=== PATIENT | male | born 1955 | race Caucasian/White ===

== ENCOUNTER 2018-09-02 17:54 | Inpatient (IN) ==
[~2018-09-02 17:54] MED LIST: predniSONE 10 MG TABLET PO SCH
[2018-09-02] MEDS ORDERED: IOPAMIDOL 100 ML BOTTLE IV ONE (17:55)
[2018-09-02] MEDS ORDERED: 0.9 % SODIUM CHLORIDE 1,000 ML IV ONE (18:31)
--- NOTE | 2018-09-02 18:50 | Emergency Department Note ---
SOB HPI - General Chief Complaint: Shortness of Breath/Dyspnea Stated Complaint: Shortness of Breath Time Seen by Provider: 09/02/18 18:27 Source: patient Mode of arrival: ambulatory Limitations: no limitations - History of Present Illness This pleasant 63-year-old male comes in after being called by urgent care. He had test done around 230 today that showed a significant anemia and a possibility of a mass in the right lower lobe with an elevated d-dimer of 0.99. His creatinine was 1.3. His hemoglobin was reported as 8.1. He has dizziness /lightheadedness when he stands up. He has had's some chronic loose stools but even more loose in the past 3-4 days. The lightheadedness has been about 3-4 days. He has had some dark stools also for about the same time. As well as shortness of breath with any activity during this time. He denies any aspiration. He has had some sweats and some chills. No cough or wheezing or phlegm. 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 Reportedly there was a small spot on the lung at that time that seem to have been pre-existing and in follow-up did not show any change. REVIEW OF SYSTEMS: Denies chest pain, throat pain, runny nose, nasal congestion. Denies chest pain although refers to sometimes fullness sensation. No palpitations. No cough, wheeze, phlegm production. Some nausea. No hematochezia or melena but dark stools. He does occasionally get some acid reflux and was recently changed from Prevacid to ranitidine with no change in symptoms. No dysuria or frequency. Denies back pain Denies rashes Has occasional headaches. Has not felt significant weakness. Denies anxiety and depression Has felt generally tired fatigue. - Related Data Home Medications Medication Instructions Recorded Confirmed aspirin 325 mg tablet 325 mg PO QDAY tab 05/13/15 09/02/18 mycophenolate mofetil 500 mg tablet 750 mg PO BID tab 05/13/15 09/02/18 prednisone 5 mg tablet 17.5 mg PO .QOTHER tab 01/23/18 09/02/18 Previous Rx's Medication Instructions Recorded lansoprazole 30 mg capsule,delayed 30 mg PO QDAY #90 cap 01/08/18 release pyridostigmine bromide ER 180 mg 180 mg PO QHS #90 tab 03/27/18 tablet,extended release dulaglutide 0.75 mg/0.5 mL 0.75 mg SUB-Q QWEEK #6 ml 04/23/18 subcutaneous pen injector irbesartan 300 mg tablet 300 mg PO QDAY #90 tab 05/07/18 pioglitazone 45 mg tablet 45 mg PO QDAY #90 tab 05/21/18 atorvastatin 20 mg tablet 20 mg PO QDAY #90 tab 06/11/18 metformin ER 500 mg 500 mg PO TID #270 tab 07/09/18 tablet,extended release 24 hr hydrochlorothiazide 25 mg tablet 25 mg PO QDAY #90 tab 07/16/18 ranitidine 150 mg tablet 150 mg PO QHS #90 tab 07/16/18 blood sugar diagnostic strips See Dose Instructions .ROUTE 07/18/18 .MEDSUPPLY #100 each pyridostigmine bromide 60 mg tablet 60 mg PO Q6H #120 tab 07/30/18 Allergies Allergy/AdvReac Type Severity Reaction Status Date / Time No Known Drug Allergies Allergy Verified 09/02/18 14:18 Past Medical History - Past Medical History [facility] Narrative: Medical History (Last Updated 09/02/18 @ 19:07 by Cesar Cortez DO) History of anemia (Chronic ~2007) History of sarcoma of soft tissue (Chronic) KAIDEN (obstructive sleep apnea) (Chronic) Obesity (BMI 30-39.9) (Chronic) Hemorrhoids (Acute) Somnolence (Acute) Myasthenia gravis without acute exacerbation (Chronic) Hypertension, essential, benign (Chronic) Hyperlipidemia (Chronic) Headache (Acute) Esophageal reflux (Acute) Diabetes mellitus, type II (Acute) History of colon cancer (Acute) Sepulveda's esophagus (Acute) Past Surgical History (Last Updated 09/02/18 @ 19:07 by Cesar Cortez DO) History of surgery on arm (Chronic ~2013) Hx of thymectomy (Chronic) Transplanted cornea (Acute) H/O sternectomy (Chronic ~2000) History of hemicolectomy (Chronic ~2007) History of colonoscopy (Inactive 10/21/13) Family History (Last Reviewed 12/17/17 @ 12:31 by Branden Dang PA-C) Unknown Diabetes mellitus Essential hypertension Medical history: Reports: other (hemorrhoids. DENIES Chronic anticoagulants, pneumonia, PUD.). Denies: CHF, COPD, DVT, pulmonary embolus, thyroid disease - Social History smoking status: Never smoker Alcohol use: Reports: None Drug use: Reports: none. Denies: marijuana Physical Exam Limitations: no limitations General appearance: alert, in no apparent distress, obese Head: atraumatic, normocephalic Eye: Present: EOMI ENT: mucous membranes moist Neck: Present: trachea midline. Absent: lymphadenopathy, thyromegaly Chest: Present: symmetric chest wall rise Respiratory: Present: normal lung sounds bilaterally. Absent: respiratory distress, wheezes, stridor, accessory muscle use, prolonged expiratory phase Cardiovascular: Present: regular rate, normal rhythm. Absent: systolic murmur, diastolic murmur Abdominal: Present: soft, other (LargeLarge domed and moderately firm). Absent : distention, tenderness, guarding, rebound, rigidity, organomegaly, mass Rectal: Present: normal rectal tone, heme (+) stool, black stool, hemorrhoids ( Noninflamed but 1 of which is markedly to moderately enlarged but flat and light pink at 12:00.), prostate enlargement (Mildly without nodule). Absent: mass, tenderness, prostate tenderness Extremities: Absent: pedal edema, pretibial edema, calf tenderness Back: Absent: CVA tenderness (R), CVA tenderness (L), spinous process tenderness Neurological: Present: alert, oriented X3 Psychiatric: Present: normal affect, normal mood Skin: Present: warm, dry Course Course Narrative: 6:29 PM - symptomatic anemic patient with Hemoccult positive stool and a right lower lobe lung mass with a history of sarcoma and colon cancer. We will do some hydration and type and cross for [address] scan of the chest with angiogram because of elevated d-dimer and at risk if he has an underlying oncologic condition. Approximately 7:30 PM - radiologist informs me of patient having a 5 cm posterior right lower lobe pleural-based mass that is likely neoplastic. There is also a new lesion in the liver that is 10 cm and is new compared to old CT. No lymph nodes are obvious. Emboli are not noted in the large ones he has a small ASD which decreases some of the sensitivity but no obvious emboli. 7:45 PM - I spoke with patient and informed him of the circumstances above and concerns. Possibility of near future biopsy but first needs infusions of 2 units of packed RBCs and workup for upper GI bleed possibility. 7:55 PM - spoke with hospitalist, Dr. Villeda. I will speak with Dr. Escalona regarding possible EGD and discussed that with him. 8 PM - I spoke with hospitalist, Dr. Villeda. Then I spoke with Dr. Molina, information assurance manager, who kindly accepts adding him to the schedule tomorrow to do an upper scope. He requests Protonix 80 mg bolus and then infusion, 8 mg/h after that. 8:13 PM - Dr. Villeda kindly accepts this patient's inpatient care. Vital Signs Temperature 97.6 F 09/02/18 17:55 Pulse Rate 79 09/02/18 17:55 Respiratory Rate 18 09/02/18 17:55 Blood Pressure 129/67 09/02/18 17:55 Pulse Oximetry (%) 100 09/02/18 17:55 Temperature 97.6 F 09/02/18 17:55 Pulse Rate 62 09/02/18 19:43 Respiratory Rate 19 09/02/18 19:43 Blood Pressure 132/56 09/02/18 19:16 Pulse Oximetry (%) 100 09/02/18 19:43 Shortness of Breath/Dyspnea - Lab Data Lab results reviewed: Yes I reviewed the patient's lab results. Lab Results 09/02/18 Range/Units 19:11 POC Hct 24.0 L (41.0-55.0) % POC Sodium 140 (133-145) mmol/L POC Potassium 3.8 (3.3-5.1) mmol/L POC Chloride 106 (96-108) mmol/L POC Total CO2 23 (22-30) mmol/L POC BUN 20 (8-23) mg/dl POC Creatinine 1.5 H (0.7-1.2) mg/dl POC Glucose 102 (70-105) mg/dL POC WB Ioniz Calcium 1.15 L (1.16-1.32) mmol/L - Radiology Data Radiology results reviewed: Yes I reviewed the patient's radiology results. - EKG Data EKG results narrative: No acute coronary syndrome findings. Sinus rhythm with frequent PACs. This ECG will be read by a setup technician. Disposition Pt seen by [facility]AGMAN/PA only: No Clinical Impression: Anemia due to gastrointestinal blood loss, Right lower lobe lung mass, Liver mass, ASD (atrial septal defect), KAIDEN (obstructive sleep apnea) Summary: SEE COURSE ABOVE. PATIENT BEING ADMITTED FOR FURTHER TRANSFUSIONS OF PACKED RED BLOOD CELLS, IV PPI, EGD IN THE MORNING, AND POSSIBLE BIOPSY OF MASSES IN THE RIGHT LOWER LOBE OF THE LUNG AND/OR LIVER. Disposition: Xfer As Inpt ([facility]) Condition: Serious Referrals: Natan Trejo MD [Primary Care Provider] -
[2018-09-02] MEDS ORDERED: 0.9 % SODIUM CHLORIDE 250 ML IV SCH ×3 (20:00→21:23)
[2018-09-02] MEDS ORDERED: PANTOPRAZOLE 40 MG VIAL IV ONE ×2 (20:15→21:39)
[2018-09-02 20:20] LABS: Appearance,Urine CLEAR; Bacteria,Urine 0 /hpf (0); Bilirubin,Urine NEG (NEG); Color,Urine YELLOW; Glucose,Urine (UA) NEGATIVE (NEG); Leukocyte Esterase,Urine NEG /uL (NEG); Mucus,Urine FEW /hpf (0); Protein,Urine NEG (NEG); Specific Gravity,Urine 1.021 (1.000-1.035); Urine Blood NEG mg/dL (<0.03); Urine Hyaline Cast 13 /lpf (0-2); Urine RBC < 1 /hpf (0-1); Urine Squamous Epithelial Cell 0 /hpf (0-4); Urine WBC 3 /hpf (0-4); Urobilinogen,Urine NEG (NEG)
[2018-09-02] MEDS ORDERED: ACETAMINOPHEN 325 MG TABLET PO PRN (21:23)
[2018-09-02] MEDS ORDERED: IPRATROPIUM/ALBUTEROL 3 ML AMPUL.NEB NEB PRN (21:23)
[2018-09-02] MEDS ORDERED: NALOXONE HCL 0.4 MG/ML VIAL IV PRN (21:23)
[2018-09-02] MEDS: PANTOPRAZOLE 80 MG in 0.9 % SODIUM CHLORIDE 100 ML IV SCH (21:52)
[2018-09-02] MEDS: HYDROcodone/APAP 5/325MG TABLET PO PRN (21:56)
[2018-09-02] MEDS: 0.9 % SODIUM CHLORIDE 10 ML SYRINGE IV SCH (22:00)
--- NOTE | 2018-09-02 22:08 | Internal Med History&Physical ---
Medical - H&P: HPI Patient information: Note initiated : 09/02/18 at 10:06 pm Service Date, if different from initiated Date: [] Patient: David Lynch a 63 y/o M admitted on 09/02/18 for Shortness of Breath. Chief Complaint: [] History of present illness: Mr. 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 Mayo oncologist. The patient presents to the ER from the urgent care center for shortness of breath and dizziness that has been bothering him for the last 2 -3 weeks. This has been progressively getting worse. Over the last 3-4 days the patient notes that his effort tolerance is significantly declined, he gets dizzy when he tries to climb up stairs or sometimes when he changes position. The patient has had poor appetite early satiety and some bloating in his stomach. The patient notes that he feels pressure on the abdominal epigastric region constant not associated with activity. The patient denies any headache changes in vision difficulty in swallowing [has a history of myasthenia but no recent flareup], denies any chest pain palpitations. He does have some abdominal distention, epigastric distress intermittent, bloating, he admits to having some dark stools denies any blood in the stools denies black colored stools. Denies any urinary issues. Has chronic knee issues, no new joint swelling no new skin rashes. He denies any other acute complaints or concerns. In the emergency room the patient was noted to be afebrile, hemodynamically stable, saturating 100% on room air. Chest x-ray that was done in the urgent care setting showed that the patient had a mass in the lung. Labs drawn showed a hemoglobin of around 8.1, before this was 10.9 in dec this year. D-dimer elevated at 0.9, chemistry shows creatinine of 1.3, BUN 20. Rest of the left lites stable. CT angios shows mass in the lung, mass in the liver. Given the hemoglobin was 8.1 FOB was checked which was noted to be positive and GI was consulted given the patient had some dizziness patient was admitted to the hospital for anemia as well as positive occult blood testing. IV PPI initiated at the request of GI physician. All systems: reviewed and no additional remarkable complaints except as stated ( As per HPI rest negative) Medical - H&P: PMH Medical history: Medical History (Last Updated 09/02/18 @ 19:07 by Cesar Cortez DO) History of anemia (Chronic ~2007) History of sarcoma of soft tissue (Chronic) KAIDEN (obstructive sleep apnea) (Chronic) Obesity (BMI 30-39.9) (Chronic) Hemorrhoids (Acute) Somnolence (Acute) Myasthenia gravis without acute exacerbation (Chronic) Hypertension, essential, benign (Chronic) Hyperlipidemia (Chronic) Headache (Acute) Esophageal reflux (Acute) Diabetes mellitus, type II (Acute) History of colon cancer (Acute) Sepulveda's esophagus (Acute) Surgical history: Past Surgical History (Last Updated 09/02/18 @ 19:07 by Cesar Cortez DO) History of surgery on arm (Chronic ~2013) Hx of thymectomy (Chronic) Transplanted cornea (Acute) H/O sternectomy (Chronic ~2000) History of hemicolectomy (Chronic ~2007) for colon cancer History of colonoscopy (Inactive 10/21/13) Pertinent family history: Family History (Last Reviewed 12/17/17 @ 12:31 by Branden Dang PA-C) Unknown Diabetes mellitus Essential hypertension Medical - H&P: Meds Home Medications Medication Instructions Recorded Confirmed Type aspirin 325 mg tablet 325 mg PO QDAY tab 05/13/15 09/02/18 History mycophenolate mofetil 500 mg tablet 750 mg PO BID tab 05/13/15 09/02/18 History lansoprazole 30 mg capsule,delayed 30 mg PO QDAY #90 cap 01/08/18 09/02/18 Rx release prednisone 5 mg tablet 17.5 mg PO .QOTHER tab 01/23/18 09/02/18 History pyridostigmine bromide ER 180 mg 180 mg PO QHS #90 tab 03/27/18 09/02/18 Rx tablet,extended release dulaglutide 0.75 mg/0.5 mL 0.75 mg SUB-Q QWEEK #6 ml 04/23/18 09/02/18 Rx subcutaneous pen injector irbesartan 300 mg tablet 300 mg PO QDAY #90 tab 05/07/18 09/02/18 Rx pioglitazone 45 mg tablet 45 mg PO QDAY #90 tab 05/21/18 09/02/18 Rx atorvastatin 20 mg tablet 20 mg PO QDAY #90 tab 06/11/18 09/02/18 Rx metformin ER 500 mg 500 mg PO TID #270 tab 07/09/18 09/02/18 Rx tablet,extended release 24 hr hydrochlorothiazide 25 mg tablet 25 mg PO QDAY #90 tab 07/16/18 09/02/18 Rx ranitidine 150 mg tablet 150 mg PO QHS #90 tab 07/16/18 09/02/18 Rx blood sugar diagnostic strips See Dose Instructions .ROUTE 07/18/18 09/02/18 Rx .MEDSUPPLY #100 each pyridostigmine bromide 60 mg tablet 60 mg PO Q6H #120 tab 07/30/18 09/02/18 Rx Allergies Allergy/AdvReac Type Severity Reaction Status Date / Time No Known Drug Allergies Allergy Verified 09/02/18 14:18 Medical - H&P: Exam - Constitutional Vitals: Temp Pulse Resp BP Pulse Ox 97.6 F 79 15 121/62 99 09/02/18 21:25 09/02/18 21:25 09/02/18 21:25 09/02/18 21:25 09/02/18 21:25 Exam: GENERAL: The patient is a well-developed, well-nourished in no apparent distress. Is alert and oriented x3. Obese individual VITAL SIGNS: Reviewed and as noted elsewhere. HEENT: Head is normocephalic and atraumatic. Extraocular muscles are intact. Pupils are equal, round, and reactive to light. Nares appeared normal. Mouth appears any without lesions. Mucous membranes are moist. NECK: Normal to inspection, Supple, No lymphadenopathy or thyromegaly. LUNGS: Air entry equal on both sides, no wheezing, crackles or rhonchi noted. No accessory muscles of respiration HEART: Regular rate and rhythm normal, S1 and S2 heard, no Gallop, S3 or Rub Noted, No Gross murmur heard. ABDOMEN: Soft, nontender,. Positive bowel sounds. No hepatosplenomegaly was noted. Large pannus distended abdomen patient notes is chronically distended EXTREMITIES: No cyanosis, clubbing, rash, lesions or edema. NEUROLOGIC: Cranial nerves II through XII are grossly intact. Motor and Sensory System Grossly Intact PSYCHIATRIC: Normal affect, Normal Mood. Appropriate Behavior. SKIN: No ulceration or wounds noted, No jaundice, No rash noted. Few bruising noted on arms Medical - H&P: Reslt - Labs Labs: Urine 09/02/18 Range/Units 19:47 Urine Color Yellow Urine Appearance Clear Urine pH 5.0 (5.0-9.0) Ur Specific [place] 1.021 (1.000-1.035) Urine Protein Neg (NEG) mg/dL Urine Glucose (UA) Negative (NEG) mg/dL Medical - H&P: A/P - Narrative A/P Narrative: A/P GI bleed, likely lower Lung mass Liver mass h/o colon cancer h/o sarcoma on upper extremity obesity HTN HLD Myasthenia Gravis Diabetes mellitus Plan Admit to inpatient status, Transfuse 2 units of blood Likely lower GI bleed given that BUN is near normal. GI has been consulted, who will be doing EGD in AM, IV PPI on going. May need a colonoscopy, last colonoscopy as per pt 2013 Will need to consider biopsy of liver or lung lesion. If c reatinine is stable in AM will get CT abdomen and pelvis. Resume home meds as appropriate Resume pyridostigmine for myasthenia gravis resume steroids. DVT scd GI ppi Full code NPO diet. Social History - Tobacco smoking status: Never smoker - Alcohol alcohol intake frequency: does not drink - Substance use substance use type: does not use
[2018-09-02 22:10] LABS: Ferritin 134.3 ng/ml (30-400)
[2018-09-02] MEDS: ONDANSETRON 4 MG/2 ML VIAL IV PRN (22:15)
[2018-09-02] MEDS ORDERED: PYRIDOSTIGMINE 180 MG PO SCH (22:16)
[2018-09-02] MEDS ORDERED: DEXTROSE 50% 50 ML VIAL IV PRN (22:17)
[2018-09-02 22:24] LABS: Folate 7.4 ng/mL (4.2-19.9)
[2018-09-02] MEDS: PYRIDOSTIGMINE 60 MG TABLET PO SCH (22:58)
[2018-09-02] MEDS ORDERED: HYDROmorphone 2 MG/ML VIAL ONE (23:51)
[2018-09-03] MEDS ORDERED: HYDROmorphone 2 MG/ML VIAL IV PRN ×2 (00:52→08:59)
[2018-09-03] MEDS: INSULIN LISPRO 1 UNIT/0.01 ML UNIT SQ SCH ×4 (01:00→17:57)
[2018-09-03] MEDS: HYDROcodone/APAP 5/325MG TABLET PO PRN ×2 (01:29→05:18)
[2018-09-03] MEDS ORDERED: HYDROmorphone 2 MG/ML VIAL ONE (03:55)
[2018-09-03] MEDS: ONDANSETRON 4 MG/2 ML VIAL IV PRN (03:55)
[2018-09-03] MEDS: PYRIDOSTIGMINE 60 MG TABLET PO SCH ×3 (04:37→17:57)
[2018-09-03] MEDS: 0.9 % SODIUM CHLORIDE 10 ML SYRINGE IV SCH ×3 (05:24→22:45)
[2018-09-03 06:45] LABS: Basophils # (Auto) 0 K/mcL (0.0-0.3); Basophils % (Auto) 0 % (0.0-2.0); Eosinophils # (Auto) 0 K/mcL (0.0-0.7); Eosinophils % (Auto) 0.3 % (0.0-7.0); Granulocytes % (Auto) 80.4 % (38.0-78.0); Lymphocytes # (Auto) 0.9 K/mcL (1.5-4.8); Lymphocytes % (Auto) 10.1 % (15.5-49.0); Mean Corpuscular HGB Conc 33.2 g/dL (31.0-36.0); Mean Corpuscular Hemoglobin 28.5 pg (26.0-34.0); Monocytes # (Auto) 0.8 K/mcL (0.1-0.9); Monocytes % (Auto) 9.2 % (1.0-12.0); Platelet Count 358 K/mcL (140-440); RBC 3.06 M/mcL (4.50-5.90)
[2018-09-03 07:00] LABS: ALT/SGPT 21 U/l (0-40); Albumin 3.2 gm/dL (3.2-5.2); Albumin/Globulin Ratio 1.1 (1.0-2.3); Alkaline Phosphatase 213 U/L (39-117); Bilirubin,Direct < 0.2 mg/dL (0.0-0.3); Blood Urea Nitrogen 19 mg/dl (8-23); Gamma Glutamyl Transpeptidase 42 U/L (8-61); Uric Acid 8.2 mg/dL (2.5-8.0)
--- NOTE | 2018-09-03 07:27 | Cat Scan Report ---
CLINICAL INFORMATION: Elevated d-dimer history of colon cancer COMPARISON: Abdomen CT 06/20/2010. TECHNIQUE: 80 cc of Isovue-300 were injected intravenously. Using SmartPrep to maximize pulmonary artery opacification, 2.5 mm helical slices were obtained from the lung apices through the lung bases. Following reconstruction, 2.5 mm sagittal, coronal, and axial reformations were processed. The exam was reviewed at mediastinal, lung, and bone windows. The exam was performed using radiation dose optimization techniques including, but not limited to, automated exposure control, adjustment of the mA and/or kV according to patient size and use of iterative reconstruction technique. FINDINGS: Pulmonary parenchymal windows show a new well-circumscribed 5 cm pleural-based mass in the posterior right lower lobe. The remaining lungs show only minimal scattered scarring in the lower lobes, right middle lobe and lingula. No additional nodules identified. No ragini infiltrates. Pleural spaces are normal. Mediastinal windows show moderate, stable cardiomegaly. There is a 13 mm ASD and lipomatous infiltration in the interatrial septum. Moderate right calcific atherosclerotic plaque scattered throughout the coronary arteries. Sternotomy changes are noted. The pulmonary arteries are suboptimally optimally opacified, but is no evidence of embolus. Thoracic aorta is normal in contour and caliber. There is no adenopathy in the mediastinal hilar or axillary region. Multiple small nodules disseminated throughout the thyroid are most compatible with multiple benign adenomas i.e. benign thyroid goiter. Bones and soft tissues the chest wall are normal. Images through the abdomen show a new 11 cm mass dominating the anterior segment of the right hepatic lobe. This may represent a solitary hepatic metastases or, less likely, primary hepatocellular carcinoma. Multiple small stones again noted in the gallbladder neck. The visualized pancreas adrenal glands and spleen are normal. The superior portion of a 2.50 m nodule seen in left perinephric fat. IMPRESSION: 1. No evidence of pulmonary embolus. The presence of a ASD has resulted in right to left shunting of contrast and suboptimal opacification of pulmonary arteries 2. New 5 cm pleural-based mass in the posterior right lower lobe. This could represent primary lung carcinoma or solitary lung metastasis. 3. New 11 cm low-attenuation mass dominating the anterior segment of the right hepatic lobe. It is more likely a solitary hepatic metastases, then a primary hepatocellular carcinoma. Please correlate with alpha-fetoprotein 4. 2.5 cm potential nodule, incompletely imaged, in the left perinephric fat. This is unlikely to represent the superior pole the left kidney. 5. Cholelithiasis Suggest: CT-guided biopsy of right lower lobe lung mass. By report, the patient has a history of two prior malignancies - one of which is colon carcinoma. If the lung lesion is a metastases from recurrent colon cancer, then it will be presumed that the liver lesion is also a colon carcinoma metastases (particularly if the alpha-fetoprotein is normal). Also consider, abdomen and pelvic CT to search for primary carcinoma and additional metastatic burden Interpreted and Authenticated by: Raj Roberson 09/03/18
[2018-09-03] MEDS ORDERED: MAGNESIUM SULFATE 2 GM/50 ML BAG IV ONE ×2 (07:31→08:59)
[2018-09-03] MEDS ORDERED: 0.9 % SODIUM CHLORIDE 250 ML IV SCH ×3 (07:45→08:59)
[2018-09-03] MEDS ORDERED: predniSONE 5 MG TABLET PO SCH (08:00)
[2018-09-03] MEDS ORDERED: PROMETHAZINE 25 MG/ML VIAL IV PRN ×2 (08:12→08:59)
--- NOTE | 2018-09-03 08:17 | XRay Report ---
CLINICAL INFORMATION: abdominal distention COMPARISON: None. FINDINGS: Only small amounts of gas seen within the stomach, transverse segment colon and within a few loops of small bowel in the right mid abdomen. Most of the GI tract is decompressed. No free air. 5.6 cm no posterior right lower lobe mass seen through the liver in the right upper quadrant. 2 cm calcification in the central true pelvis may represent a urinary bladder stone versus prostate calcification IMPRESSION: Decompressed GI tract typically indicative of poor oral intake and vomiting nausea and/or diarrhea. No plain film evidence of bowel obstruction. 2 cm calcification in the central true pelvis: either a bladder stone or, less likely, prostate calcification. Suggest: Abdomen and pelvic CT to better evaluate any potential cause for abdominal distention and also to search for a primary carcinoma in this man with known new mass lesions in the liver and right lower lobe with a prior history of malignancy Interpreted and Authenticated by: Raj Roberson 09/03/18
[2018-09-03] MEDS: PANTOPRAZOLE 80 MG in 0.9 % SODIUM CHLORIDE 100 ML IV SCH (08:18)
[2018-09-03] MEDS ORDERED: PROMETHAZINE 25 MG/ML VIAL ONE (08:19)
[2018-09-03] MEDS ORDERED: KETAMINE HCL 50 MG/ML ML IV PRN (08:33)
[2018-09-03] MEDS ORDERED: MIDAZOLAM 2 MG/2 ML VIAL IV SCH (08:45)
[2018-09-03] MEDS ORDERED: PROPOFOL 200 MG/20 ML VIAL IV SCH (08:45)
[2018-09-03] MEDS ORDERED: PROPOFOL 20 ML IV ONE (08:55)
[2018-09-03] MEDS ORDERED: MIDAZOLAM 2 MG/2 ML VIAL ONE (08:55)
[2018-09-03] MEDS ORDERED: ONDANSETRON 4 MG/2 ML VIAL IV PRN (08:59)
[2018-09-03] MEDS ORDERED: IPRATROPIUM/ALBUTEROL 3 ML AMPUL.NEB NEB PRN (08:59)
[2018-09-03] MEDS ORDERED: NALOXONE HCL 0.4 MG/ML VIAL IV PRN (08:59)
[2018-09-03] MEDS ORDERED: DEXTROSE 50% 50 ML VIAL IV PRN (08:59)
[2018-09-03] MEDS ORDERED: ACETAMINOPHEN 325 MG TABLET PO PRN (08:59)
[2018-09-03] MEDS ORDERED: HYDROcodone/APAP 5/325MG TABLET PO PRN (08:59)
[2018-09-03] MEDS ORDERED: CYANOCOBALAMIN 1,000 MCG/ML VIAL IM ONE ×2 (09:00)
[2018-09-03] MEDS: HYDROCORTISONE SOD SUCC 100 MG VIAL IV SCH ×3 (10:20→22:43)
--- NOTE | 2018-09-03 10:54 | Internal Med Progress Note ---
Medical - PN: Subj Patient information: Note initiated : 09/03/18 at 10:51 am Service Date, if different from initiated Date: [] Patient: David Lynch a 63 y/o M admitted on 09/02/18 for Shortness of Breath /GI Bleed. Chief Complaint: [] Interval history: Mr. 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 Mayo oncologist. The patient presents to the ER from the urgent care center for shortness of breath and dizziness that has been bothering him for the last 2 -3 weeks. This has been progressively getting worse. Over the last 3-4 days the patient notes that his effort tolerance is significantly declined, he gets dizzy when he tries to climb up stairs or sometimes when he changes position. The patient has had poor appetite early satiety and some bloating in his stomach. The patient notes that he feels pressure on the abdominal epigastric region constant not associated with activity. The patient denies any headache changes in vision difficulty in swallowing [has a history of myasthenia but no recent flareup], denies any chest pain palpitations. He does have some abdominal distention, epigastric distress intermittent, bloating, he admits to having some dark stools denies any blood in the stools denies black colored stools. Denies any urinary issues. Has chronic knee issues, no new joint swelling no new skin rashes. He denies any other acute complaints or concerns. In the emergency room the patient was noted to be afebrile, hemodynamically stable, saturating 100% on room air. Chest x-ray that was done in the urgent care setting showed that the patient had a mass in the lung. Labs drawn showed a hemoglobin of around 8.1, before this was 10.9 in dec this year. D-dimer elevated at 0.9, chemistry shows creatinine of 1.3, BUN 20. Rest of the left lites stable. CT angios shows mass in the lung, mass in the liver. Given the hemoglobin was 8.1 FOB was checked which was noted to be positive and GI was consulted given the patient had some dizziness patient was admitted to the hospital for anemia as well as positive occult blood testing. IV PPI initiated at the request of GI physician. 09/03 Patient seen examined, received 2 units prbc, his hb this AM was 8.7, up from 8.1. Pt still has nausesa, some abdominal d istention. no obvious blood in stool Pt EGD this AM was negative as expected. Plan for CT Abdomen, and possible colonoscopy Will also consider biopsy of the mass in lung or liver once pt is more stable Repeat CBC, transfuse 2 more units. Pertinent ROS: Denies headache, dizziness Denies chest pain, palpitations Denies cough or shortness of breath Denies abdominal pain, present nausea or vomiting, abdominal distention - Constitutional Vitals: Vital Signs Temp Pulse Resp BP Pulse Ox 98.6 F 55 L 14 148/76 100 09/03/18 09:30 09/03/18 09:29 09/03/18 09:30 09/03/18 09:30 09/03/18 09:30 Period Temp Pulse Resp BP Sys/Bailey Pulse Ox Last 24 Hr 97.6 F-98.6 F 55-109 13-19 108-150/55-80 94-100 Intake and Output 09/02/18 09/03/18 09/03/18 21:59 05:59 13:59 Intake Total 1000 / 1000 650 / 650 359 / 359 Output Total / 100 / 100 Balance 1000 / 1000 649 / 649 259 / 259 Weight 267 lb 8 oz Intake & Output: Intake & Output 09/02/18 09/03/18 09/03/18 21:59 05:59 13:59 Intake Total 1000 / 1000 650 / 650 359 / 359 Output Total / 100 / 100 Balance 1000 / 1000 649 / 649 259 / 259 Weight 267 lb 8 oz Intake: IV 1000 / 1000 359 / 359 Sodium Chloride 0.9% 1,000 ml @ 1000 / 1000 Wide Open IV BOLUS ONE Rx#: [id number] Sodium Chloride 0.9% 250 ml @ 242 / 242 20 mls/hr IV .[id number] [facility] Rx#: [id number] Protonix 80 mg In Sodium 117 / 117 Chloride 0.9% 100 ml @ 8 MG/HR 10 mls/hr IV Q10H [facility] Rx#: [id number] Blood Product 650 / 650 Output: Void Amount / Emesis 100 / 100 Other: # Voids 1 # Bowel Movements 1 Exam: Constitutional; Afebrile, cooperative, alert, not in distress. Eyes- No icterus, , No periorbital swelling Ears- Ext ear normal, hearing normal to conversation. Neck- Midline trachea, supple Respiratory system: Air Entry equal on both sides, No crackles or wheezing, no rhonchi. CVS- Rate rhythm regular, S1,S2 heard, no gallop, no rub. Abdomen- Soft nontender abdomen, no organomegaly, no tenderness, no guarding or rigidity, distended, present bowel sounds. WELD FITTER- AOOx3, moving all extremities, no gross focal deficit noted. Medical - PN: Obj Da - Labs CBC & Chem 7: 09/03/18 03:35 09/03/18 03:35 Labs: Abnormal Lab Results 09/03/18 09/03/18 09/02/18 03:35 03:35 19:47 RBC 3.06 L Hgb 8.7 L Hct 26.3 L POC Hct Gran % 80.4 H Lymph % (Auto) 10.1 L Lymph # (Auto) 0.9 L POC Creatinine Uric Acid 8.2 H Calcium 8.4 L POC WB Ioniz Calcium Magnesium 1.4 L Iron Transferrin % Sat Alkaline Phosphatase 213 H Lactate Dehydrogenase 757 H Vitamin B12 Hyaline Casts 13 H 09/02/18 09/02/18 19:11 19:11 RBC Hgb Hct POC Hct 24.0 L Gran % Lymph % (Auto) Lymph # (Auto) POC Creatinine 1.5 H Uric Acid Calcium POC WB Ioniz Calcium 1.15 L Magnesium Iron 19 L Transferrin % Sat 6 L Alkaline Phosphatase Lactate Dehydrogenase Vitamin B12 150.0 L Hyaline Casts Meds: Medications Acetaminophen (Tylenol) 650 mg PO Q6HP PRN PRN Reason: PAIN/FEVER > 101 Hydrocodone Bitart/Acetaminophen ([place] 5/325mg) 1 tab PO Q4HP PRN PRN Reason: pain not responding to tylenol Albuterol/Ipratropium (Duoneb) 3 ml NEB Q4HP PRN PRN Reason: Shortness Of Breath Or Wheezing Dextrose (Dextrose 50%) 0 ml IV UD PRN PRN Reason: Hypoglycemia Diagnostic Test (Pha) (Accu-Chek) 1 each FS ONCE [facility] Stop: 09/03/18 16:33 Diagnostic Test (Pha) (Accu-Chek) 1 each FS Q6 [facility] Hydrocortisone Sodium Succinate (Solu-Cortef) 50 mg IV Q8 [facility] Last Admin: 09/03/18 10:20 Dose: 50 mg Hydromorphone HCl (Dilaudid) 0.5 - 1 mg IV Q2HP PRN PRN Reason: PAIN LEVEL > 6 Sodium Chloride (Sodium Chloride 0.9%) 250 mls @ 20 mls/hr IV .[id number] [facility] Stop: 09/03/18 20:14 Insulin Human Lispro (Humalog) 0 unit SQ Q6 [facility]; Protocol Ketamine HCl (Ketamine Hcl) 50 mg IV ONCE PRN PRN Reason: Sedation Stop: 09/03/18 16:33 Midazolam HCl (Versed) 0 mg IV ONCE [facility] Stop: 09/03/18 16:33 Last Admin: 09/03/18 09:22 Dose: 2 mg Naloxone HCl (Narcan) 0.1 mg IV Q2MIN PRN PRN Reason: Opiate Reversal Ondansetron HCl (Zofran) 4 mg IV Q4HP PRN PRN Reason: Nausea And Vomiting Promethazine HCl (Phenergan) 12.5 mg IV Q4HP PRN PRN Reason: Nausea And Vomiting Last Admin: 09/03/18 10:19 Dose: 12.5 mg Propofol (Diprivan) 0 mg IV ONCE [facility] Stop: 09/03/18 16:33 Last Admin: 09/03/18 09:22 Dose: 80 mg Pyridostigmine [place] (Mestinon) 180 mg PO HS SCOTT Pyridostigmine [place]av[place] (Mestinon) 60 mg PO Q6H [facility] Sodium Chloride (Saline Flush) 10 ml IV Q8 [facility] Medical - PN: A/P - Time Spent With Patient Total time spent is greater than 50% in coordination of care (as documented) at patient's floor/unit and/or counseling patient: - Narrative A/P Narrative: A/P GI bleed, likely lower Lung mass Liver mass h/o colon cancer 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 Plan transfer to PCU, given that he has not responded to blood transfusion, and was not feeling well this AM Transfuse more 2 units of blood Likely lower GI bleed given that BUN is near normal. EGD is negative. CT abdomen and pelvis ordered. d/c ppi drip will need a colonoscopy, resumed pyridostigmine IV hydrocortisone for now, he has been on 17.5mg prednisone q48 hrs for his myasthenia, last dose day before yesterday. Given acute stress conditions, will use IV cortisone, switch back to oral prednisone once pt is back to baseline SSI for glucose control Hold bp med Biopsy mass, once patient is more stable. DVT scd GI ppi Full code NPO diet.
[2018-09-03] MEDS ORDERED: IOPAMIDOL 100 ML BOTTLE IV ONE (11:03)
[2018-09-03 11:07] LABS: Basophils # (Auto) 0 K/mcL (0.0-0.3); Basophils % (Auto) 0.1 % (0.0-2.0); Eosinophils # (Auto) 0 K/mcL (0.0-0.7); Eosinophils % (Auto) 0 % (0.0-7.0); Granulocytes % (Auto) 88.3 % (38.0-78.0); Lymphocytes # (Auto) 0.4 K/mcL (1.5-4.8); Lymphocytes % (Auto) 4.4 % (15.5-49.0); Mean Cell Volume 84.8 fL (80.0-100.0); Mean Corpuscular HGB Conc 33.6 g/dL (31.0-36.0); Mean Corpuscular Hemoglobin 28.5 pg (26.0-34.0); Monocytes # (Auto) 0.6 K/mcL (0.1-0.9); Monocytes % (Auto) 7.2 % (1.0-12.0); Platelet Count 338 K/mcL (140-440); RBC 3.24 M/mcL (4.50-5.90); Red Cell Distribution Width 14.2 % (11.5-14.5)
[2018-09-03] MEDS ORDERED: PEG 3350/NA SULF,BICARB,CL/KCL 4,000 ML ORAL.SOL PO ONE (12:18)
--- NOTE | 2018-09-03 12:28 | Cat Scan Report ---
CLINICAL INFORMATION: History of colon cancer. Possible metastases in the right lower lobe and liver. Evaluate for recurrence COMPARISON: Abdomen and pelvic CT 05/28/2010 TECHNIQUE: Following enteric contrast, 80 cc of Isovue-300 were injected intravenously, and 60 seconds later, 0.625 mm helical slices were obtained from the mid heart through the subtrochanteric regions. Following reconstruction, 2.5 mm sagittal, coronal and axial reformatted images were processed and reviewed at bone, lung and soft tissue windows. Five minutes later, 0.625 mm helical slices were obtained from the mid heart through the kidneys and viewed at soft tissue windows.The exam was performed using radiation dose optimization techniques including, but not limited to, automated exposure control, adjustment of the mA and/or kV according to patient size and use of iterative reconstruction technique. FINDINGS: Lung bases again show 5 cm well-circumscribed pleural-based mass in the posterior right lower lobe - new from the 2009 CT. There is minimal atelectasis or scarring present in both posterior lower lobes. The heart is moderately enlarged.. There are no effusions. Images through the abdomen show a 11 cm low-attenuation lesion dominating the anterior segment of the right hepatic lobe. No other liver lesions. There are, less than 10 stones, all less than 1 cm layering dependently within the gallbladder has previously seen. Gallbladder and bile ducts are otherwise normal. Both kidneys, adrenal glands, spleen, pancreas and aorta, including aortic branches, are normal in size, configuration and attenuation without focal lesion. Images through the pelvis show urinary bladder, prostate and seminal vesicles to be unremarkable. The colon is poorly distended - no gross evidence of colonic malignancy. Small bowel and stomach are normal. There is a 2.1 cm soft tissue nodule in the superior posterior left perinephric space - new from the previous study. There also two small nodules in the inferior left perinephric space - both less than 5 mm. In addition, a 3 cm nodule has developed in the subcutaneous fat over the posterior right ilium. Bone windows show no osseous metastases IMPRESSION: 1. New 11 cm low-attenuation mass dominating the anterior segment of the right hepatic lobe which likely represents either a solitary metastasis or, less likely, primary hepatocellular carcinoma. No other hepatic lesions. 2. 5 cm pleural-based nodule posterior right lower lobe - also new. It is likely a metastases but could represent primary lung carcinoma 3. Three new soft tissue nodules: 2.1 cm in the superior left perinephric space, 5 mm the inferior perinephric space and a third 3 cm nodule in the deep Camper's fascia over the posterior right ilium. Suggest: CT-guided lung biopsy of the nodule in the posterior right lower lobe nodule. If the histology is compatible with metastatic recurrent colon carcinoma, it will almost be certain that the liver, both retroperitoneal and right subcutaneous fat lesions were also represent colon carcinoma metastases. Correlation with CEA and alpha-fetoprotein may be helpful Interpreted and Authenticated by: Raj Roberson 09/03/18
--- NOTE | 2018-09-03 13:57 | Internal Medicine Consult Note ---
Medical - CN: HPI - Data of Consult Patient: new to practice Consult date: 09/03/18 Requesting Physician: Ed Villeda Primary Care Provider: Natan Mitchell Provider: Natan Trejo - Consult Narrative Reason for consult: Anemia. History of present illness: Mr. Lynch is a 63 year old M, a life long nonsmoker, with a remote history of colon cancer treated with right hemicolectomy in 2000 and colonoscopy in 2012 revealing hyperplastic polyps who presents for evaluation of anemia, diarrhea, and abdominal pain with recently discovered lung and liver lesion on CT. Two weeks ago, he began to have decreased appetite resulting in a 10lb weight loss. He then developed abdominal distention and 5 days ago, developed watery diarrhea with up to 5 BMs daily with nocturnal stooling. He denies any hematochezia or melena. Stool has been dark brown to green in color. His RN, Cece, says his stool has been clear since admission. He had been taking NSAIDs frequently, up to 1200mg of ibuprofen daily for knee pain. He denies any recent antibiotic use. Several days ago he began feeling dyspneic and dizzy with exertion and presented to urgent care for evaluation, where he was discovered to have a normocytic, normochromic anemia with hgb 8. He is feeling better with decreased abdominal discomfort and distention since receiving 2 units of PRBCs. EGD today showed no cause of anemia. CC: Ed Villeda - Constitutional Constitutional: Present: as per HPI, weight loss. Absent: fever(s) - Respiratory Respiratory: Present: dyspnea - Gastrointestinal Gastrointestinal: Present: bloating, diarrhea. Absent: coffee ground emesis, hematemesis, hematochezia Medical - CN: PMH Medical history: Colon cancer 2000, diabetes, myasthenia gravis, Sepulveda's esophagus Surgical history: Thymectomy, right hemicolectomy. Family history: reviewed and not pertinent Functional capacity: independent ambulation Smoking status: Never smoker Drug use: none Alcohol use: none Medical - CN: Meds Home Medications Medication Instructions Recorded Confirmed Type aspirin 325 mg tablet 325 mg PO QDAY tab 05/13/15 09/02/18 History mycophenolate mofetil 500 mg tablet 750 mg PO BID tab 05/13/15 09/02/18 History prednisone 5 mg tablet 17.5 mg PO .QOTHER tab 01/23/18 09/02/18 History pyridostigmine bromide ER 180 mg 180 mg PO QHS #90 tab 03/27/18 09/02/18 Rx tablet,extended release dulaglutide 0.75 mg/0.5 mL 0.75 mg SUB-Q QWEEK #6 ml 04/23/18 09/02/18 Rx subcutaneous pen injector irbesartan 300 mg tablet 300 mg PO QDAY #90 tab 05/07/18 09/02/18 Rx pioglitazone 45 mg tablet 45 mg PO QDAY #90 tab 05/21/18 09/02/18 Rx atorvastatin 20 mg tablet 20 mg PO QDAY #90 tab 06/11/18 09/02/18 Rx metformin ER 500 mg 500 mg PO TID #270 tab 07/09/18 09/02/18 Rx tablet,extended release 24 hr hydrochlorothiazide 25 mg tablet 25 mg PO QDAY #90 tab 07/16/18 09/02/18 Rx ranitidine 150 mg tablet 150 mg PO QHS #90 tab 07/16/18 09/02/18 Rx blood sugar diagnostic strips See Dose Instructions .ROUTE 07/18/18 09/02/18 Rx .MEDSUPPLY #100 each pyridostigmine bromide 60 mg tablet 60 mg PO Q6H #120 tab 07/30/18 09/02/18 Rx Allergies Allergy/AdvReac Type Severity Reaction Status Date / Time No Known Drug Allergies Allergy Verified 09/02/18 14:18 Medical - CN: Exam - Constitutional Vitals: Temp Pulse Resp BP Pulse Ox 98.4 F 58 L 18 119/58 95 09/03/18 12:02 09/03/18 12:19 09/03/18 12:02 09/03/18 12:16 09/03/18 12:19 Medical - CN: Result - Labs CBC & Chem 7: 09/03/18 10:39 09/03/18 03:35 Labs: Short CBC 09/03/18 09/03/18 Range/Units 03:35 10:39 WBC 8.4 8.4 (4.5-11.0) K/mcL Hgb 8.7 L 9.2 L (13.5-16.5) g/dL Hct 26.3 L 27.5 L (41.0-55.0) % Plt Count 358 338 (140-440) K/mcL BMP 09/03/18 03:35 Sodium 141 Potassium 3.9 Chloride 104 Carbon Dioxide 22 BUN 19 Creatinine 1.2 Glucose 105 Calcium 8.4 L Liver Function 09/03/18 Range/Units 03:35 Total Bilirubin 0.7 (0.0-1.0) mg/dL Direct Bilirubin < 0.2 (0.0-0.3) mg/dL GGT 42 (8-61) U/L AST 19 (0-37) U/l ALT 21 (0-40) U/l Alkaline Phosphatase 213 H (39-117) U/L Albumin 3.2 (3.2-5.2) gm/dL Urine 09/02/18 Range/Units 19:47 Urine Color Yellow Urine Appearance Clear Urine pH 5.0 (5.0-9.0) Ur Specific [place] 1.021 (1.000-1.035) Urine Protein Neg (NEG) mg/dL Urine Glucose (UA) Negative (NEG) mg/dL Medical - CN: A/P (1) Anemia due to gastrointestinal blood loss Status: Acute Assessment and plan: I reviewed his case with Dr. Sawyer. We will proceed with colonoscopy to further evaluate his anemia. A new primary colon cancer would be a unifying diagnosis for his anemia, lung mass and liver mass. If colonoscopy is negative, we will proceed with liver biopsy as our next course of investigation and draw an alpha fetoprotein.
--- NOTE | 2018-09-03 15:21 | Internal Med Progress Note ---
Medical - PN: Subj Patient information: Note initiated : 09/03/18 at 3:11 pm Service Date, if different from initiated Date: [] Patient: David Lynch a 63 y/o M admitted on 09/02/18 for Shortness of Breath /GI Bleed. Chief Complaint: [] Interval history: Mr. 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 Mayo oncologist. The patient presents to the ER from the urgent care center for shortness of breath and dizziness that has been bothering him for the last 2 -3 weeks. This has been progressively getting worse. Over the last 3-4 days the patient notes that his effort tolerance is significantly declined, he gets dizzy when he tries to climb up stairs or sometimes when he changes position. The patient has had poor appetite early satiety and some bloating in his stomach. The patient notes that he feels pressure on the abdominal epigastric region constant not associated with activity. The patient denies any headache changes in vision difficulty in swallowing [has a history of myasthenia but no recent flareup], denies any chest pain palpitations. He does have some abdominal distention, epigastric distress intermittent, bloating, he admits to having some dark stools denies any blood in the stools denies black colored stools. Denies any urinary issues. Has chronic knee issues, no new joint swelling no new skin rashes. He denies any other acute complaints or concerns. In the emergency room the patient was noted to be afebrile, hemodynamically stable, saturating 100% on room air. Chest x-ray that was done in the urgent care setting showed that the patient had a mass in the lung. Labs drawn showed a hemoglobin of around 8.1, before this was 10.9 in dec this year. D-dimer elevated at 0.9, chemistry shows creatinine of 1.3, BUN 20. Rest of the left lites stable. CT angios shows mass in the lung, mass in the liver. Given the hemoglobin was 8.1 FOB was checked which was noted to be positive and GI was consulted given the patient had some dizziness patient was admitted to the hospital for anemia as well as positive occult blood testing. IV PPI initiated at the request of GI physician. 09/03 Patient seen examined, received 2 units prbc, his hb this AM was 8.7, up from 8.1. Pt still has nausesa, some abdominal d istention. no obvious blood in stool Pt EGD this AM was negative as expected. Plan for CT Abdomen, and possible colonoscopy Will also consider biopsy of the mass in lung or liver once pt is more stable Repeat CBC, transfuse 2 more unit 09/04 - Constitutional Vitals: Vital Signs Temp Pulse Resp BP Pulse Ox 98.4 F 58 L 18 119/58 95 09/03/18 12:02 09/03/18 12:19 09/03/18 12:02 09/03/18 12:16 09/03/18 12:19 Period Temp Pulse Resp BP Sys/Bailey Pulse Ox Last 24 Hr 97.6 F-98.6 F 53-109 13-19 103-150/52-80 94-100 Intake and Output 09/03/18 09/03/18 09/03/18 05:59 13:59 21:59 Intake Total 650 / 650 409 / 409 Output Total 100 / 100 Balance 649 / 649 309 / 309 Intake & Output: Intake & Output 09/03/18 09/03/18 09/03/18 05:59 13:59 21:59 Intake Total 650 / 650 409 / 409 Output Total 100 / 100 Balance 649 / 649 309 / 309 Intake: IV 409 / 409 Sodium Chloride 0.9% 250 ml @ 242 / 242 20 mls/hr IV .[id number] [facility] Rx#: [id number] Protonix 80 mg In Sodium 117 / 117 Chloride 0.9% 100 ml @ 8 MG/HR 10 mls/hr IV Q10H [facility] Rx#: [id number] Blood Product 650 / 650 Output: Void Amount Emesis 100 / 100 Other: # Voids 1 # Bowel Movements 1 Exam: General: Alert, Awake, No acute Distress HEENT: EOMI, CV: RRR, No murmurs, normal s1/s2 Pulm: Clear b/l, no wheezing/rhonchi/rales Abd: soft, nontender, +BS x4 Ext: no clubbing/cyanosis/edema Neuro: Alert, no focal deficits, moves all extremities Skin: warm/dry Medical - PN: Obj Da - Labs CBC & Chem 7: 09/03/18 10:39 09/03/18 03:35 Labs: Abnormal Lab Results 09/03/18 09/03/18 09/03/18 10:39 03:35 03:35 RBC 3.24 L 3.06 L Hgb 9.2 L 8.7 L Hct 27.5 L 26.3 L POC Hct Gran % 88.3 H 80.4 H Lymph % (Auto) 4.4 L 10.1 L Lymph # (Auto) 0.4 L 0.9 L POC Creatinine Uric Acid 8.2 H Calcium 8.4 L POC WB Ioniz Calcium Magnesium 1.4 L Iron Transferrin % Sat Alkaline Phosphatase 213 H Lactate Dehydrogenase 757 H Vitamin B12 Hyaline Casts 09/02/18 09/02/18 09/02/18 19:47 19:11 19:11 RBC Hgb Hct POC Hct 24.0 L Gran % Lymph % (Auto) Lymph # (Auto) POC Creatinine 1.5 H Uric Acid Calcium POC WB Ioniz Calcium 1.15 L Magnesium Iron 19 L Transferrin % Sat 6 L Alkaline Phosphatase Lactate Dehydrogenase Vitamin B12 150.0 L Hyaline Casts 13 H Meds: Medications Acetaminophen (Tylenol) 650 mg PO Q6HP PRN PRN Reason: PAIN/FEVER > 101 Hydrocodone Bitart/Acetaminophen ([place] 5/325mg) 1 tab PO Q4HP PRN PRN Reason: pain not responding to tylenol Albuterol/Ipratropium (Duoneb) 3 ml NEB Q4HP PRN PRN Reason: Shortness Of Breath Or Wheezing Dextrose (Dextrose 50%) 0 ml IV UD PRN PRN Reason: Hypoglycemia Diagnostic Test (Pha) (Accu-Chek) 1 each FS ONCE [facility] Stop: 09/03/18 16:33 Last Admin: 09/03/18 13:16 Dose: 1 each Diagnostic Test (Pha) (Accu-Chek) 1 each FS Q6 [facility] Last Admin: 09/03/18 13:10 Dose: 1 each Hydrocortisone Sodium Succinate (Solu-Cortef) 50 mg IV Q8 [facility] Last Admin: 09/03/18 14:50 Dose: 50 mg Hydromorphone HCl (Dilaudid) 0.5 - 1 mg IV Q2HP PRN PRN Reason: PAIN LEVEL > 6 Sodium Chloride (Sodium Chloride 0.9%) 250 mls @ 20 mls/hr IV .[id number] [facility] Stop: 09/03/18 20:14 Last Admin: 09/03/18 10:30 Dose: 20 mls/hr Insulin Human Lispro (Humalog) 0 unit SQ Q6 [facility]; Protocol Last Admin: 09/03/18 13:26 Dose: 1 unit Ketamine HCl (Ketamine Hcl) 50 mg IV ONCE PRN PRN Reason: Sedation Stop: 09/03/18 16:33 Midazolam HCl (Versed) 0 mg IV ONCE [facility] Stop: 09/03/18 16:33 Last Admin: 09/03/18 09:22 Dose: 2 mg Naloxone HCl (Narcan) 0.1 mg IV Q2MIN PRN PRN Reason: Opiate Reversal Ondansetron HCl (Zofran) 4 mg IV Q4HP PRN PRN Reason: Nausea And Vomiting Promethazine HCl (Phenergan) 12.5 mg IV Q4HP PRN PRN Reason: Nausea And Vomiting Last Admin: 09/03/18 10:19 Dose: 12.5 mg Propofol (Diprivan) 0 mg IV ONCE [facility] Stop: 09/03/18 16:33 Last Admin: 09/03/18 09:22 Dose: 80 mg Pyridostigmine [place] (Mestinon) 180 mg PO HS [facility] Pyridostigmine [place] (Mestinon) 60 mg PO Q6H [facility] Last Admin: 09/03/18 13:09 Dose: 60 mg Sodium Chloride (Saline Flush) 10 ml IV Q8 [facility] Last Admin: 09/03/18 12:55 Dose: 10 ml Medical - PN: A/P - Time Spent With Patient Total time spent is greater than 50% in coordination of care (as documented) at patient's floor/unit and/or counseling patient: - Narrative A/P Narrative: A: *GI bleed, likely lower: Likely lower GI bleed given that BUN is near normal. EGD is negative. 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 -resumed pyridostigmine -IV hydrocortisone for now, he has been on 17.5mg prednisone q48 hrs for his myasthenia, last dose day before yesterday. Given acute stress conditions, will use IV cortisone, switch back to oral prednisone once pt is back to baseline -SSI for glucose control -Hold bp med -Biopsy mass, once patient is more stable. -ppx: SCD/GI ppi
[2018-09-03] MEDS ORDERED: PANTOPRAZOLE 80 MG in 0.9 % SODIUM CHLORIDE 100 ML IV SCH (18:00)
[2018-09-03] MEDS ORDERED: PYRIDOSTIGMINE 180 MG PO SCH (21:00)
[2018-09-04] MEDS: PYRIDOSTIGMINE 60 MG TABLET PO SCH ×4 (00:23→17:36)
[2018-09-04] MEDS: INSULIN LISPRO 1 UNIT/0.01 ML UNIT SQ SCH ×4 (00:23→17:35)
[2018-09-04 05:14] LABS: Basophils # (Auto) 0 K/mcL (0.0-0.3); Basophils % (Auto) 0 % (0.0-2.0); Eosinophils # (Auto) 0 K/mcL (0.0-0.7); Eosinophils % (Auto) 0 % (0.0-7.0); Granulocytes % (Auto) 89.2 % (38.0-78.0); Lymphocytes # (Auto) 0.5 K/mcL (1.5-4.8); Lymphocytes % (Auto) 5.8 % (15.5-49.0); Mean Cell Volume 86.4 fL (80.0-100.0); Mean Corpuscular HGB Conc 32.7 g/dL (31.0-36.0); Mean Corpuscular Hemoglobin 28.2 pg (26.0-34.0); Monocytes # (Auto) 0.5 K/mcL (0.1-0.9); Platelet Count 369 K/mcL (140-440); RBC 3.55 M/mcL (4.50-5.90); Red Cell Distribution Width 14.5 % (11.5-14.5)
[2018-09-04 05:33] LABS: ALT/SGPT 21 U/l (0-40); Albumin 2.9 gm/dL (3.2-5.2); Alkaline Phosphatase 222 U/L (39-117); Bilirubin,Direct < 0.2 mg/dL (0.0-0.3); Blood Urea Nitrogen 20 mg/dl (8-23); Gamma Glutamyl Transpeptidase 44 U/L (8-61); Uric Acid 8.4 mg/dL (2.5-8.0)
[2018-09-04] MEDS: HYDROCORTISONE SOD SUCC 100 MG VIAL IV SCH ×2 (06:00→20:31)
[2018-09-04] MEDS: 0.9 % SODIUM CHLORIDE 10 ML SYRINGE IV SCH ×4 (06:02→20:49)
--- NOTE | 2018-09-04 07:44 | Internal Med Progress Note ---
Medical - PN: Subj Patient information: Note initiated : 09/04/18 at 7:33 am Service Date, if different from initiated Date: [] Patient: David Lynch a 63 y/o M admitted on 09/02/18 for Shortness of Breath /GI Bleed. Chief Complaint: [] Interval history: Mr. 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 Mayo oncologist. The patient presents to the ER from the urgent care center for shortness of breath and dizziness that has been bothering him for the last 2 -3 weeks. This has been progressively getting worse. Over the last 3-4 days the patient notes that his effort tolerance is significantly declined, he gets dizzy when he tries to climb up stairs or sometimes when he changes position. The patient has had poor appetite early satiety and some bloating in his stomach. The patient notes that he feels pressure on the abdominal epigastric region constant not associated with activity. The patient denies any headache changes in vision difficulty in swallowing [has a history of myasthenia but no recent flareup], denies any chest pain palpitations. He does have some abdominal distention, epigastric distress intermittent, bloating, he admits to having some dark stools denies any blood in the stools denies black colored stools. Denies any urinary issues. Has chronic knee issues, no new joint swelling no new skin rashes. He denies any other acute complaints or concerns. In the emergency room the patient was noted to be afebrile, hemodynamically stable, saturating 100% on room air. Chest x-ray that was done in the urgent care setting showed that the patient had a mass in the lung. Labs drawn showed a hemoglobin of around 8.1, before this was 10.9 in dec this year. D-dimer elevated at 0.9, chemistry shows creatinine of 1.3, BUN 20. Rest of the left lites stable. CT angios shows mass in the lung, mass in the liver. Given the hemoglobin was 8.1 FOB was checked which was noted to be positive and GI was consulted given the patient had some dizziness patient was admitted to the hospital for anemia as well as positive occult blood testing. IV PPI initiated at the request of GI physician. 09/03 Patient seen examined, received 2 units prbc, his hb this AM was 8.7, up from 8.1. Pt still has nausesa, some abdominal d istention. no obvious blood in stool Pt EGD this AM was negative as expected. Plan for CT Abdomen, and possible colonoscopy Will also consider biopsy of the mass in lung or liver once pt is more stable Repeat CBC, transfuse 2 more unit 09/04 Slept much better last night feeling better. Did have some nausea with a GoLYTELY prep. Otherwise doing better. Review of Systems: denies headache/fever/chills/vomiting/chest or abdominal pain/cough/dyspnea. Otherwise see above. - Constitutional Vitals: Vital Signs Temp Pulse Resp BP Pulse Ox 99.0 F 53 L 18 134/69 99 09/03/18 20:01 09/04/18 01:01 09/03/18 12:02 09/04/18 04:02 09/04/18 04:02 Period Temp Pulse Resp BP Sys/Bailey Pulse Ox Last 24 Hr 98.4 F-99.0 F 47-109 98-155/49-89 93-100 Intake and Output 09/03/18 09/04/18 09/04/18 21:59 05:59 13:59 Intake Total 748 / 748 Output Total 700 / 700 400 / 400 Balance 48 / 48 -400 / -400 Weight 121.79 kg Intake & Output: Intake & Output 09/03/18 09/04/18 09/04/18 21:59 05:59 13:59 Intake Total 748 / 748 Output Total 700 / 700 400 / 400 Balance 48 / 48 -400 / -400 Weight 121.79 kg Intake: Oral 400 / 400 Blood Product 348 / 348 Output: Void Amount 400 / 400 Stool 300 / 300 400 / 400 Other: Stool Size Moderate Stool Color Brown Green Stool Consistency Liquid Loose Exam: General: Alert, Awake, No acute Distress HEENT: EOMI, neck supple CV: jarod but reg, 2/6 SM, normal s1/s2 Pulm: Clear b/l, no wheezing/rhonchi/rales Abd: soft, nontender, +BS x4, obese Ext: no clubbing/cyanosis/edema Neuro: Alert, no focal deficits, moves all extremities Skin: warm/dry Medical - PN: Obj Da - Labs CBC & Chem 7: 09/04/18 04:08 09/04/18 04:08 Labs: Abnormal Lab Results 09/04/18 09/04/18 09/03/18 04:08 04:08 10:39 RBC 3.55 L 3.24 L Hgb 10.0 L 9.2 L Hct 30.6 L 27.5 L POC Hct Gran % 89.2 H 88.3 H Lymph % (Auto) 5.8 L 4.4 L Gran # 8.1 H Lymph # (Auto) 0.5 L 0.4 L POC Creatinine Glucose 128 H Uric Acid 8.4 H Calcium 8.5 L POC WB Ioniz Calcium Magnesium Iron Transferrin % Sat Alkaline Phosphatase 222 H Lactate Dehydrogenase 728 H Albumin 2.9 L Vitamin B12 Hyaline Casts 09/03/18 09/03/18 09/02/18 03:35 03:35 19:47 RBC 3.06 L Hgb 8.7 L Hct 26.3 L POC Hct Gran % 80.4 H Lymph % (Auto) 10.1 L Gran # Lymph # (Auto) 0.9 L POC Creatinine Glucose Uric Acid 8.2 H Calcium 8.4 L POC WB Ioniz Calcium Magnesium 1.4 L Iron Transferrin % Sat Alkaline Phosphatase 213 H Lactate Dehydrogenase 757 H Albumin Vitamin B12 Hyaline Casts 13 H 09/02/18 09/02/18 19:11 19:11 RBC Hgb Hct POC Hct 24.0 L Gran % Lymph % (Auto) Gran # Lymph # (Auto) POC Creatinine 1.5 H Glucose Uric Acid Calcium POC WB Ioniz Calcium 1.15 L Magnesium Iron 19 L Transferrin % Sat 6 L Alkaline Phosphatase Lactate Dehydrogenase Albumin Vitamin B12 150.0 L Hyaline Casts Meds: Medications Acetaminophen (Tylenol) 650 mg PO Q6HP PRN PRN Reason: PAIN/FEVER > 101 Hydrocodone Bitart/Acetaminophen ([place] 5/325mg) 1 tab PO Q4HP PRN PRN Reason: pain not responding to tylenol Albuterol/Ipratropium (Duoneb) 3 ml NEB Q4HP PRN PRN Reason: Shortness Of Breath Or Wheezing Dextrose (Dextrose 50%) 0 ml IV UD PRN PRN Reason: Hypoglycemia Diagnostic Test (Pha) (Accu-Chek) 1 each FS Q6 [facility] Last Admin: 09/04/18 06:02 Dose: 1 each Hydrocortisone Sodium Succinate (Solu-Cortef) 50 mg IV Q8 [facility] Last Admin: 09/04/18 06:00 Dose: 50 mg Hydromorphone HCl (Dilaudid) 0.5 - 1 mg IV Q2HP PRN PRN Reason: PAIN LEVEL > 6 Insulin Human Lispro (Humalog) 0 unit SQ Q6 [facility]; Protocol Last Admin: 09/04/18 06:01 Dose: Not Given Naloxone HCl (Narcan) 0.1 mg IV Q2MIN PRN PRN Reason: Opiate Reversal Ondansetron HCl (Zofran) 4 mg IV Q4HP PRN PRN Reason: Nausea And Vomiting Promethazine HCl (Phenergan) 12.5 mg IV Q4HP PRN PRN Reason: Nausea And Vomiting Last Admin: 09/03/18 10:19 Dose: 12.5 mg Pyridostigmine [place] (Mestinon) 180 mg PO HS [facility] Last Admin: 09/03/18 22:44 Dose: 180 mg Pyridostigmine [place] (Mestinon) 60 mg PO Q6H [facility] Last Admin: 09/04/18 06:01 Dose: 60 mg Sodium Chloride (Saline Flush) 10 ml IV Q8 [facility] Last Admin: 09/04/18 06:02 Dose: 10 ml Medical - PN: A/P - Time Spent With Patient Total time spent is greater than 50% in coordination of care (as documented) at patient's floor/unit and/or counseling patient: - Narrative A/P Narrative: A: *GI bleed, likely lower: -EGD is negative -Colonoscopy pending *Anemia, acute blood loss -s/p 2prbc 09/02 & , stable *Lung/Liver mass (h/o colon cancer and h/o sarcoma on upper extremity): followed with [facility] in past -CT abd/pelv with 11cm right hepatic lobe mas, 5cm pleural based nodule RLL, 3 soft tissue nodules perinephric space left *Obesity: *HTN: on ARB/HCTZ at home *Myasthenia Gravis: *Diabetes mellitus *B12 Deficiency *Hypomag: improved P: -monitor H&H -GI following, pending colonoscopy -resumed pyridostigmine -IV hydrocortisone for now, he has been on 17.5mg prednisone q48 hrs for his myasthenia, last dose day before yesterday. Given acute stress conditions, will use IV cortisone, switch back to oral prednisone once pt is back to baseline -SSI for glucose control, hold home metformin/pioglitazone for now -BP appropriate w/o home bp meds -B12 supp -Biopsy mass after colonscopy findings -f/u with oncology outpt -ppx: SCD/GI ppi
[2018-09-04] MEDS ORDERED: CYANOCOBALAMIN (VITAMIN B-12) 500 MCG TABLET PO SCH (09:00)
[2018-09-04] MEDS ORDERED: HYDROCORTISONE SOD SUCC 100 MG VIAL IV SCH (09:00)
[2018-09-04] MEDS ORDERED: PROPOFOL 200 MG/20 ML VIAL IV SCH ×2 (12:00→16:34)
[2018-09-04] MEDS ORDERED: KETAMINE HCL 50 MG/ML ML IV PRN ×2 (12:00→16:34)
[2018-09-04] MEDS ORDERED: MIDAZOLAM 2 MG/2 ML VIAL IV SCH ×2 (12:00→16:34)
--- NOTE | 2018-09-04 12:52 | EGD Procedure Note ---
EGD Procedure Notes - Procedure Information Patient information: Note initiated : 09/04/18 at 12:44 pm Service Date: 09/03/18 Patient: David Lynch 63 y/o M admitted on 09/02/18 for Shortness of Breath /GI Bleed. Pre-op diagnosis general: Anemia. Query GI bleed. Post-Op Diagnosis general: Normal EGD. No bleeding. No bleeding site. Procedure: Esophogogastroduodenoscopy Procedure Narrative: The procedure, alternatives and risks were discussed with the patient and the patient's questions were answered. With endoscopist-administered intravenous sedation, the Olympus video endoscope was introduced into the esophagus. The esophagus, stomach, and duodenum were examined sequentially. No abnormality seen. There is no esophagitis nor hiatal hernia. Bile was seen in the stomach.The gastric mucosa, antrum, pyloric ring and duodenum were otherwise normal. Antral biopsy was taken for BRIGITTE test. The scope was withdrawn. Assessment: Normal EGD. No bleeding. No bleeding site. Will prep for colonoscopy and proceed with colonoscopy tomorrow.
[2018-09-04] MEDS ORDERED: PROPOFOL 20 ML IV ONE (14:28)
[2018-09-04] MEDS ORDERED: MIDAZOLAM 2 MG/2 ML VIAL ONE (14:28)
[2018-09-04] MEDS ORDERED: ACETAMINOPHEN 325 MG TABLET PO PRN (16:34)
[2018-09-04] MEDS ORDERED: PROMETHAZINE 25 MG/ML VIAL IV PRN (16:34)
[2018-09-04] MEDS ORDERED: ONDANSETRON 4 MG/2 ML VIAL IV PRN (16:34)
[2018-09-04] MEDS ORDERED: HYDROcodone/APAP 5/325MG TABLET PO PRN (16:34)
[2018-09-04] MEDS ORDERED: IPRATROPIUM/ALBUTEROL 3 ML AMPUL.NEB NEB PRN (16:34)
[2018-09-04] MEDS ORDERED: NALOXONE HCL 0.4 MG/ML VIAL IV PRN (16:34)
[2018-09-04] MEDS ORDERED: HYDROmorphone 2 MG/ML VIAL IV PRN (16:34)
[2018-09-04] MEDS ORDERED: DEXTROSE 50% 50 ML VIAL IV PRN (16:34)
[2018-09-04] MEDS: PYRIDOSTIGMINE 180 MG PO SCH (20:31)
[2018-09-05] MEDS: PYRIDOSTIGMINE 60 MG TABLET PO SCH ×5 (00:15→23:38)
[2018-09-05] MEDS: INSULIN LISPRO 1 UNIT/0.01 ML UNIT SQ SCH ×5 (00:28→23:36)
[2018-09-05] MEDS: 0.9 % SODIUM CHLORIDE 10 ML SYRINGE IV SCH ×3 (05:54→21:10)
[2018-09-05 06:04] LABS: Basophils # (Auto) 0 K/mcL (0.0-0.3); Basophils % (Auto) 0.1 % (0.0-2.0); Eosinophils # (Auto) 0 K/mcL (0.0-0.7); Eosinophils % (Auto) 0 % (0.0-7.0); Granulocytes % (Auto) 84.6 % (38.0-78.0); Lymphocytes # (Auto) 0.7 K/mcL (1.5-4.8); Lymphocytes % (Auto) 8.4 % (15.5-49.0); Mean Cell Volume 86.2 fL (80.0-100.0); Mean Corpuscular HGB Conc 33.1 g/dL (31.0-36.0); Mean Corpuscular Hemoglobin 28.6 pg (26.0-34.0); Monocytes # (Auto) 0.6 K/mcL (0.1-0.9); Monocytes % (Auto) 6.9 % (1.0-12.0); Platelet Count 360 K/mcL (140-440); RBC 3.45 M/mcL (4.50-5.90); Red Cell Distribution Width 14.5 % (11.5-14.5)
[2018-09-05 06:35] LABS: ALT/SGPT 20 U/l (0-40); Albumin 2.9 gm/dL (3.2-5.2); Alkaline Phosphatase 213 U/L (39-117); Bilirubin,Direct < 0.2 mg/dL (0.0-0.3); Blood Urea Nitrogen 25 mg/dl (8-23); Gamma Glutamyl Transpeptidase 43 U/L (8-61); Uric Acid 9.9 mg/dL (2.5-8.0)
--- NOTE | 2018-09-05 07:29 | Internal Med Progress Note ---
Medical - PN: Subj Patient information: Note initiated : 09/05/18 at 7:24 am Service Date, if different from initiated Date: [] Patient: David Lynch a 63 y/o M admitted on 09/02/18 for Shortness of Breath /GI Bleed. Chief Complaint: [] Interval history: Mr. 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 Mayo oncologist. The patient presents to the ER from the urgent care center for shortness of breath and dizziness that has been bothering him for the last 2 -3 weeks. This has been progressively getting worse. Over the last 3-4 days the patient notes that his effort tolerance is significantly declined, he gets dizzy when he tries to climb up stairs or sometimes when he changes position. The patient has had poor appetite early satiety and some bloating in his stomach. The patient notes that he feels pressure on the abdominal epigastric region constant not associated with activity. The patient denies any headache changes in vision difficulty in swallowing [has a history of myasthenia but no recent flareup], denies any chest pain palpitations. He does have some abdominal distention, epigastric distress intermittent, bloating, he admits to having some dark stools denies any blood in the stools denies black colored stools. Denies any urinary issues. Has chronic knee issues, no new joint swelling no new skin rashes. He denies any other acute complaints or concerns. In the emergency room the patient was noted to be afebrile, hemodynamically stable, saturating 100% on room air. Chest x-ray that was done in the urgent care setting showed that the patient had a mass in the lung. Labs drawn showed a hemoglobin of around 8.1, before this was 10.9 in dec this year. D-dimer elevated at 0.9, chemistry shows creatinine of 1.3, BUN 20. Rest of the left lites stable. CT angios shows mass in the lung, mass in the liver. Given the hemoglobin was 8.1 FOB was checked which was noted to be positive and GI was consulted given the patient had some dizziness patient was admitted to the hospital for anemia as well as positive occult blood testing. IV PPI initiated at the request of GI physician. 09/03 Patient seen examined, received 2 units prbc, his hb this AM was 8.7, up from 8.1. Pt still has nausesa, some abdominal d istention. no obvious blood in stool Pt EGD this AM was negative as expected. Plan for CT Abdomen, and possible colonoscopy Will also consider biopsy of the mass in lung or liver once pt is more stable Repeat CBC, transfuse 2 more unit 09/04 Slept much better last night feeling better. Did have some nausea with a GoLYTELY prep. Otherwise doing better. 09/05 Sleep but more difficult the last night because of interruptions but otherwise doing okay. Last BM this morning, Dark still. No other new complaint Review of Systems: denies headache/fever/chills/vomiting/chest or abdominal pain/cough/dyspnea. Otherwise see above. - Constitutional Vitals: Vital Signs Temp Pulse Resp BP Pulse Ox 98.1 F 60 18 117/58 97 09/05/18 04:18 09/04/18 20:10 09/05/18 04:18 09/05/18 04:18 09/05/18 04:18 Period Temp Pulse Resp BP Sys/Bailey Pulse Ox Last 24 Hr 97.7 F-98.5 F 60-78 16-18 107-141/46-73 94-100 Intake and Output 09/04/18 09/05/18 09/05/18 21:59 05:59 13:59 Intake Total 1040 / 1040 Output Total 200 / 200 375 / 375 Balance 840 / 840 -375 / -375 Weight 119.612 kg Intake & Output: Intake & Output 09/04/18 09/05/18 09/05/18 21:59 05:59 13:59 Intake Total 1040 / 1040 Output Total 200 / 200 375 / 375 Balance 840 / 840 -375 / -375 Weight 119.612 kg Intake: Oral 1040 / 1040 Output: Void Amount 375 / 375 Urine/Stool Mix 200 / 200 Other: Stool Size Moderate Stool Color Green Stool Consistency Liquid # Voids 2 Exam: General: Alert, Awake, No acute Distress HEENT: EOMI, neck supple CV: jarod but reg, 2/6 SM, normal s1/s2 Pulm: Clear b/l, no wheezing/rhonchi/rales Abd: soft, nontender, +BS x4, obese Ext: no clubbing/cyanosis/edema Neuro: Alert, no focal deficits, moves all extremities Skin: warm/dry Medical - PN: Obj Da - Labs CBC & Chem 7: 09/05/18 04:20 09/05/18 04:20 Labs: Abnormal Lab Results 09/05/18 09/05/18 09/04/18 04:20 04:20 04:08 RBC 3.45 L Hgb 9.9 L Hct 29.7 L POC Hct Gran % 84.6 H Lymph % (Auto) 8.4 L Gran # Lymph # (Auto) 0.7 L Sodium 146 H Anion Gap 17.0 H BUN 25 H POC Creatinine Glucose 128 H Uric Acid 9.9 H 8.4 H Calcium 8.5 L POC WB Ioniz Calcium Magnesium Iron Transferrin % Sat Alkaline Phosphatase 213 H 222 H Lactate Dehydrogenase 648 H 728 H Albumin 2.9 L 2.9 L Vitamin B12 Hyaline Casts 09/04/18 09/03/18 09/03/18 04:08 10:39 03:35 RBC 3.55 L 3.24 L Hgb 10.0 L 9.2 L Hct 30.6 L 27.5 L POC Hct Gran % 89.2 H 88.3 H Lymph % (Auto) 5.8 L 4.4 L Gran # 8.1 H Lymph # (Auto) 0.5 L 0.4 L Sodium Anion Gap BUN POC Creatinine Glucose Uric Acid 8.2 H Calcium 8.4 L POC WB Ioniz Calcium Magnesium 1.4 L Iron Transferrin % Sat Alkaline Phosphatase 213 H Lactate Dehydrogenase 757 H Albumin Vitamin B12 Hyaline Casts 09/03/18 09/02/18 09/02/18 03:35 19:47 19:11 RBC 3.06 L Hgb 8.7 L Hct 26.3 L POC Hct Gran % 80.4 H Lymph % (Auto) 10.1 L Gran # Lymph # (Auto) 0.9 L Sodium Anion Gap BUN POC Creatinine Glucose Uric Acid Calcium POC WB Ioniz Calcium Magnesium Iron 19 L Transferrin % Sat 6 L Alkaline Phosphatase Lactate Dehydrogenase Albumin Vitamin B12 150.0 L Hyaline Casts 13 H 09/02/18 19:11 RBC Hgb Hct POC Hct 24.0 L Gran % Lymph % (Auto) Gran # Lymph # (Auto) Sodium Anion Gap BUN POC Creatinine 1.5 H Glucose Uric Acid Calcium POC WB Ioniz Calcium 1.15 L Magnesium Iron Transferrin % Sat Alkaline Phosphatase Lactate Dehydrogenase Albumin Vitamin B12 Hyaline Casts Meds: Medications Acetaminophen (Tylenol) 650 mg PO Q6HP PRN PRN Reason: PAIN/FEVER > 101 Hydrocodone Bitart/Acetaminophen ([place] 5/325mg) 1 tab PO Q4HP PRN PRN Reason: pain not responding to tylenol Albuterol/Ipratropium (Duoneb) 3 ml NEB Q4HP PRN PRN Reason: Shortness Of Breath Or Wheezing Cyanocobalamin (Vitamin B-12) 1,000 mcg PO DAILY [facility] Dextrose (Dextrose 50%) 0 ml IV UD PRN PRN Reason: Hypoglycemia Diagnostic Test (Pha) (Accu-Chek) 1 each FS Q6 [facility] Last Admin: 09/05/18 05:51 Dose: 1 each Hydrocortisone Sodium Succinate (Solu-Cortef) 50 mg IV Q12 [facility] Last Admin: 09/04/18 20:31 Dose: 50 mg Hydromorphone HCl (Dilaudid) 0.5 - 1 mg IV Q2HP PRN PRN Reason: PAIN LEVEL > 6 Insulin Human Lispro (Humalog) 0 unit SQ Q6 [facility]; Protocol Last Admin: 09/05/18 05:52 Dose: Not Given Naloxone HCl (Narcan) 0.1 mg IV Q2MIN PRN PRN Reason: Opiate Reversal Ondansetron HCl (Zofran) 4 mg IV Q4HP PRN PRN Reason: Nausea And Vomiting Promethazine HCl (Phenergan) 12.5 mg IV Q4HP PRN PRN Reason: Nausea And Vomiting Pyridostigmine [place] (Mestinon) 180 mg PO HS [facility] Last Admin: 09/04/18 20:31 Dose: 180 mg Pyridostigmine [place] (Mestinon) 60 mg PO Q6H [facility] Last Admin: 09/05/18 05:42 Dose: 60 mg Sodium Chloride (Saline Flush) 10 ml IV Q8 [facility] Last Admin: 09/05/18 05:54 Dose: 10 ml Medical - PN: A/P - Time Spent With Patient Total time spent is greater than 50% in coordination of care (as documented) at patient's floor/unit and/or counseling patient: - Narrative A/P Narrative: A: *GI bleed: suspect small bowel AVM -EGD and Colonoscopy unremarkable *Anemia, acute blood loss -s/p 2prbc 09/02 & 9 -stable *Lung/Liver mass (h/o colon cancer and 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 Given acute stress conditions, will use IV cortisone, switch back to oral prednisone once pt is back to baseline -SSI for glucose control, hold home metformin/pioglitazone for now -BP appropriate w/o home bp meds -B12 supp -f/u with oncology outpt -ppx: SCD/GI ppi
[2018-09-05] MEDS ORDERED: predniSONE 5 MG TABLET PO SCH (08:00)
[2018-09-05] MEDS: DEXTROSE 5% IN WATER 500 ML IV SCH ×4 (08:25→18:14)
[2018-09-05] MEDS: HYDROCORTISONE SOD SUCC 100 MG VIAL IV SCH (08:49)
[2018-09-05] MEDS: CYANOCOBALAMIN (VITAMIN B-12) 500 MCG TABLET PO SCH (08:49)
[2018-09-05] MEDS: fentaNYL 100 MCG/2 ML VIAL IV ONE ×4 (10:35→11:46)
[2018-09-05] MEDS ORDERED: LIDOCAINE 1% 20 ML VIAL SQ ONE (11:02)
[2018-09-05] MEDS: MIDAZOLAM 2 MG/2 ML VIAL IV ONE ×2 (11:21→11:47)
[2018-09-05] MEDS: MIDAZOLAM 2 MG/2 ML VIAL ONE ×2 (11:21→11:48)
[2018-09-05] MEDS ORDERED: predniSONE 5 MG TABLET PO ONE (12:00)
--- NOTE | 2018-09-05 12:02 | Cat Scan Report ---
CLINICAL INFORMATION: 5 cm pleural-based mass in the posterior right lower lobe TECHNIQUE: The procedure and risks including possibility of bleeding, infection, inadequate tissue sampling requiring biopsy and pneumothorax were explained to the patient. He understood and wished to proceed. He was medicated prior to, and during, the procedure with Versed and fentanyl intravenously. Please medication sheet for dosages. Blood pressure and pulse oximeter were monitored and he maintained consciousness during the procedure. Total procedure time: 20 minutes. With the patient in prone position, the lesion was first CT localized. The skin overlying the lesion was marked, prepped and locally anesthetized to the level of the parietal pleura with 1% lidocaine using a 25-gauge needle. A 19-gauge Temno needle was first placed into the lateral border of the lesion under CT guidance. Through this guide, a 20-gauge Temno needle was used to obtain two core passes. Unfortunately, no tissue was retrieved. The guide needle was then replaced with a 17-gauge Temno guide and an 18-gauge Temno needle was used to obtain three adequate core samples through the mass. The samples were sent in formalin to pathology. The needle was washed in normal sterile saline between each pass. Patient tolerated procedure well. There is a tiny pneumothorax overlying the lesion on post procedure scanning. IMPRESSION: CT-guided core biopsy of 5 cm pleural-based mass in the posterior right lower lobe. Pathology pending. Small pneumothorax was noted on the post procedure scanning. The patient will be placed on nonrebreathing mask and a repeat upright chest x-ray will be performed in one hour. Patient tolerated procedure well without significant discomfort Interpreted and Authenticated by: Raj Roberson 09/05/18
--- NOTE | 2018-09-05 12:19 | XRay Report ---
CLINICAL INFORMATION: post lung BX COMPARISON: 09/02/2018 FINDINGS: There is a small (less than 5% } pneumothorax in the perimediastinal and basilar right lung region. Cardiomegaly is unchanged. Mild mediastinal widening accentuated by right rotation. The known mass in the posterior right lower lobe is not evident on this frontal film. No infiltrates IMPRESSION: 5% right pneumothorax one hour following biopsy. Suggest patient stay on nonrebreather mask and repeat film in two hours Interpreted and Authenticated by: Raj Roberson 09/05/18
--- NOTE | 2018-09-05 14:07 | XRay Report ---
CLINICAL INFORMATION: POST BX X [address] MUNIZ COMPARISON: None. FINDINGS: Mild enlargement of the cardiomediastinal silhouette is stable. Pulmonary vessels are unremarkable. Upright film shows no evidence of pneumothorax. The 5 cm mass is visualized in the subdiaphragmatic region of the right lung base. The remaining lungs are clear. IMPRESSION: Resolution of right pneumothorax. No hemorrhage following biopsy 5 cm mass right lung lung base Interpreted and Authenticated by: Raj Roberson 09/05/18
--- NOTE | 2018-09-05 15:34 | Surgical Pathology Report ---
HISTOLOGY SPECIMEN MICROSCOPIC DIAGNOSIS COLON, DESCENDING, POLYPECTOMY: -- TUBULAR ADENOMA. (EBD:itzel) CLINICAL HISTORY Anemia; history of colon cancer. PROCEDURAL IMPRESSION Polyp; GI bleed. GROSS DESCRIPTION Received in formalin labeled descending colon polyp, is a 0.5 cm manley tissue fragment. Entirely submitted in one cassette. (SCB:adj) Electronically Signed by: Callie Cardenas M.D.
--- NOTE | 2018-09-05 15:39 | Colonoscopy Procedure Note ---
Colonoscopy Procedure Notes - Procedure Information Patient information: Note initiated : 09/05/18 at 3:34 pm Service Date: 09.04.2018 Patient: David Lynch 63 y/o M admitted on 09/02/18 for Shortness of Breath /GI Bleed. Pre-op diagnosis general: Anemia. History of colon cancer. Post-op diagnosis general: Colonic polyp. GI bleed, indeterminate source. Procedure: Colonoscopy Procedure narrative: The procedure, alternatives and risks were discussed with the patient and the patient's questions were answered. With endoscopist-administered intravenous sedation, the Olympus colonoscope was introduced into the rectum and advanced to anastomosis of right hemicolectomy. Antonio-terminal ileum was intubated and 30- 40cm were examined and were normal. Colonic polyp was seen in the descending colon; polyp was removed with biopsy forceps technique. It was retrieved for histological examination. Uncomplicated diverticulosis was seen. Assessment: Colonic polyp. GI bleed, indeterminate source. Proceed with liver biopsy. Proceed with PillCam as outpatient.
--- NOTE | 2018-09-05 17:57 | Discharge Summary ---
Medical - DS: Prov Patient information: Note initiated : 09/05/18 at 5:48 pm Service Date, if different from initiated Date: [] Patient: David Lynch 63 y/o M admitted on 09/02/18 for Shortness of Breath /GI Bleed. Chief Complaint: [] Date of admission: 09/02/18 21:18 Discharge date: 09/06/18 Primary care physician: Natan Trejo Consults: 09/02/18 Consult to Physician [CONS] Stat Comment: Consulting Provider: Álvaro Sawyer Reason For Exam: Physician to Consult Consult to Physician [CONS] Stat Comment: Consulting Provider: Ed Villeda Reason For Exam: Physician to Consult Medical - DS: Meds - Discharge Medications Prescriptions: Cyanocobalamin (Vitamin B-12) [Vitamin B-12] 1,000 mcg PO DAILY #30 tablet Active and Home Medications: Home Medications aspirin 325 mg tablet 325 mg PO QDAY tab 05/13/15 [History Confirmed 09/02/18 Last Taken 09/02/18] mycophenolate mofetil 500 mg tablet 750 mg PO BID tab 05/13/15 [History Confirmed 09/02/18 Last Taken 09/02/18] prednisone 5 mg tablet 17.5 mg PO .QOTHER tab 01/23/18 [History Confirmed 09/02 Last Taken 09/01/18] pyridostigmine bromide ER 180 mg tablet,extended release 180 mg PO QHS #90 tab 03/27/18 [Rx Confirmed 09/02/18 Last Taken 09/01/18] dulaglutide 0.75 mg/0.5 mL subcutaneous pen injector 0.75 mg SUB-Q QWEEK #6 ml 04/23/18 [Rx Confirmed 09/02/18 Last Taken 09/02/18] irbesartan 300 mg tablet 300 mg PO QDAY #90 tab 05/07/18 [Rx Confirmed 09/02/18 Last Taken 09/02/18] pioglitazone 45 mg tablet 45 mg PO QDAY #90 tab 05/21/18 [Rx Confirmed 09/02/18 Last Taken 09/02/18] atorvastatin 20 mg tablet 20 mg PO QDAY #90 tab 06/11/18 [Rx Confirmed 09/02/18 Last Taken 09/01/18] metformin ER 500 mg tablet,extended release 24 hr 500 mg PO TID #270 tab [Rx Confirmed 09/02/18 Last Taken 09/01/18 12:00] hydrochlorothiazide 25 mg tablet 25 mg PO QDAY #90 tab 07/16/18 [Rx Confirmed Last Taken 09/02/18] ranitidine 150 mg tablet 150 mg PO QHS #90 tab 07/16/18 [Rx Confirmed 09/02/18 Last Taken 09/01/18] pyridostigmine bromide 60 mg tablet 60 mg PO Q6H #120 tab 07/30/18 [Rx Confirmed 09/02/18 Last Taken 09/02/18] Blood Sugar Diagnostic [Contour] 1 drop INTRADERMA BID 09/05/18 [History Confirmed 09/05/18 Last Taken Unknown] Medical - DS: Hosp Hospital course: Mr. Lynch is a 63 year old M Mr. 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 Mayo oncologist. The patient presents to the ER from the urgent care center for shortness of breath and dizziness that has been bothering him for the last 2 -3 weeks. This has been progressively getting worse. Over the last 3-4 days the patient notes that his effort tolerance is significantly declined, he gets dizzy when he tries to climb up stairs or sometimes when he changes position. The patient has had poor appetite early satiety and some bloating in his stomach. The patient notes that he feels pressure on the abdominal epigastric region constant not associated with activity. The patient denies any headache changes in vision difficulty in swallowing [has a history of myasthenia but no recent flareup], denies any chest pain palpitations. He does have some abdominal distention, epigastric distress intermittent, bloating, he admits to having some dark stools denies any blood in the stools denies black colored stools. Denies any urinary issues. Has chronic knee issues, no new joint swelling no new skin rashes. He denies any other acute complaints or concerns. In the emergency room the patient was noted to be afebrile, hemodynamically stable, saturating 100% on room air. Chest x-ray that was done in the urgent care setting showed that the patient had a mass in the lung. Labs drawn showed a hemoglobin of around 8.1, before this was 10.9 in dec this year. D-dimer elevated at 0.9, chemistry shows creatinine of 1.3, BUN 20. Rest of the left lites stable. CT angios shows mass in the lung, mass in the liver. Given the hemoglobin was 8.1 FOB was checked which was noted to be positive and GI was consulted given the patient had some dizziness patient was admitted to the hospital for anemia as well as positive occult blood testing. IV PPI initiated at the request of GI physician. 09/03 Patient seen examined, received 2 units prbc, his hb this AM was 8.7, up from 8.1. Pt still has nausesa, some abdominal d istention. no obvious blood in stool Pt EGD this AM was negative as expected. Plan for CT Abdomen, and possible colonoscopy Will also consider biopsy of the mass in lung or liver once pt is more stable Repeat CBC, transfuse 2 more unit 09/04 Slept much better last night feeling better. Did have some nausea with a GoLYTELY prep. Otherwise doing better. 09/05 Sleep but more difficult the last night because of interruptions but otherwise doing okay. Last BM this morning, Dark still. No other new complaint. Colonoscopy done with polyp removed but no source of active bleed. Suspect small bowel AVM or other erosion that it healed. Plan if patient remains stable as to obtain a [facility] outpatient with Dr. Molina. Biopsy done today on lung mass. Likely discharge tomorrow if H&H remains stable. 09/06 No bloody stools overnight no BM since yesterday evening. Feeling great desire to go home. Stable for discharge Discharge diagnosis: GI bleed suspect small bowel AVM lung and liver mass - Time Spent with Patient Total time spent providing and/or coordinating discharge services: Greater than 30 minutes Medical - DS: Exam - Constitutional Vitals: Vital Signs Temp Pulse Pulse Resp BP BP Pulse Ox 09/05/18 16:00 96.9 F L 54 L 14 162/79 97 09/05/18 12:20 68 16 99 09/05/18 12:08 97.4 F 52 L 14 125/68 100 09/05/18 12:00 98.2 F 55 L 18 120/60 100 09/05/18 10:55 50 L 14 145/77 99 09/05/18 10:50 53 L 16 157/79 96 09/05/18 10:45 64 12 97 09/05/18 10:37 83 14 97 09/05/18 07:44 98.6 F 50 L 14 127/59 94 09/05/18 04:18 98.1 F 18 117/58 97 09/04/18 20:10 97.7 F 60 18 117/56 100 09/04/18 19:18 64 100 Intake and Output 09/05/18 09/05/18 09/05/18 05:59 13:59 21:59 Intake Total 500 / 500 360 / 360 Output Total 375 / 375 450 / 450 Balance -375 / -375 50 / 50 360 / 360 Intake: IV 500 / 500 Dextrose 5% in Water 500 ml @ 500 / 500 125 mls/hr IV .Q4H [facility] Rx#: [id number] Oral 360 / 360 Output: Void Amount 375 / 375 450 / 450 Other: Meal Lunch Percent of Meal Consumed 100% Feeding Ability Independent Stool Size Moderate Stool Color Brown Stool Consistency Loose # Voids 2 Medical - DS: Data Labs on day of discharge: Labs from last 24 hours 09/05/18 09/05/18 09/05/18 07:17 07:17 04:20 WBC RBC Hgb Hct MCV MCH MCHC RDW Plt Count MPV Gran % Lymph % (Auto) Teller % (Auto) Eos % (Auto) Baso % (Auto) Gran # Lymph # (Auto) Teller # (Auto) Eos # (Auto) Baso # (Auto) PT 14.4 INR 1.1 APTT 34 Sodium 146 H Potassium 3.8 Chloride 107 Carbon Dioxide 22 Anion Gap 17.0 H BUN 25 H Creatinine 1.2 GFR Calculation 64 Glucose 101 Uric Acid 9.9 H Calcium 8.9 Phosphorus 4.1 Magnesium 2.0 Total Bilirubin 0.3 Direct Bilirubin < 0.2 GGT 43 AST 20 ALT 20 Alkaline Phosphatase 213 H Lactate Dehydrogenase 648 H Total Protein 5.9 Albumin 2.9 L Globulin 3.0 Albumin/Globulin Ratio 1.0 Triglycerides 79 09/05/18 04:20 WBC 8.5 RBC 3.45 L Hgb 9.9 L Hct 29.7 L MCV 86.2 MCH 28.6 MCHC 33.1 RDW 14.5 Plt Count 360 MPV 8.7 Gran % 84.6 H Lymph % (Auto) 8.4 L Teller % (Auto) 6.9 Eos % (Auto) 0 Baso % (Auto) 0.1 Gran # 7.2 Lymph # (Auto) 0.7 L Teller # (Auto) 0.6 Eos # (Auto) 0 Baso # (Auto) 0 PT INR APTT Sodium Potassium Chloride Carbon Dioxide Anion Gap BUN Creatinine GFR Calculation Glucose Uric Acid Calcium Phosphorus Magnesium Total Bilirubin Direct Bilirubin GGT AST ALT Alkaline Phosphatase Lactate Dehydrogenase Total Protein Albumin Globulin Albumin/Globulin Ratio Triglycerides Medical - DS: A/P - Patient/Caregiver Discharge Instructions Activity: increase activity as tolerated Diet: Consistent Carbohydrate Prescriptions: Cyanocobalamin (Vitamin B-12) [Vitamin B-12] 1,000 mcg PO DAILY #30 tablet - Follow up Plan Follow up with: Álvaro Sawyer MD [Physician] - 09/14/18 10:30 am Christoph Mayo MD [Physician] - Natan Trejo MD [Primary Care Provider] - 09/17/18 7:45 am Disposition: Home, Self-Care Prognosis: Serious Rehab Potential: Fair
[2018-09-05] MEDS ORDERED: HYDROCORTISONE SOD SUCC 100 MG VIAL IV SCH (21:00)
[2018-09-05] MEDS: PYRIDOSTIGMINE 180 MG PO SCH (21:09)
[2018-09-06 05:49] LABS: Basophils # (Auto) 0 K/mcL (0.0-0.3); Basophils % (Auto) 0.1 % (0.0-2.0); Eosinophils # (Auto) 0 K/mcL (0.0-0.7); Eosinophils % (Auto) 0 % (0.0-7.0); Granulocytes % (Auto) 84.5 % (38.0-78.0); Lymphocytes # (Auto) 0.6 K/mcL (1.5-4.8); Lymphocytes % (Auto) 7.6 % (15.5-49.0); Mean Cell Volume 86.8 fL (80.0-100.0); Mean Corpuscular HGB Conc 32.5 g/dL (31.0-36.0); Mean Corpuscular Hemoglobin 28.2 pg (26.0-34.0); Monocytes # (Auto) 0.6 K/mcL (0.1-0.9); Monocytes % (Auto) 7.8 % (1.0-12.0); Platelet Count 330 K/mcL (140-440); RBC 3.42 M/mcL (4.50-5.90); Red Cell Distribution Width 14.6 % (11.5-14.5)
[2018-09-06 06:22] LABS: ALT/SGPT 20 U/l (0-40); Albumin 2.9 gm/dL (3.2-5.2); Alkaline Phosphatase 201 U/L (39-117); Bilirubin,Direct < 0.2 mg/dL (0.0-0.3); Blood Urea Nitrogen 24 mg/dl (8-23); Gamma Glutamyl Transpeptidase 44 U/L (8-61); Uric Acid 9.9 mg/dL (2.5-8.0)
[2018-09-06] MEDS: INSULIN LISPRO 1 UNIT/0.01 ML UNIT SQ SCH (06:24)
[2018-09-06] MEDS: PYRIDOSTIGMINE 60 MG TABLET PO SCH (06:25)
[2018-09-06] MEDS: 0.9 % SODIUM CHLORIDE 10 ML SYRINGE IV SCH (06:25)
--- NOTE | 2018-09-06 07:13 | Internal Med Progress Note ---
Medical - PN: Subj Patient information: Note initiated : 09/06/18 at 7:09 am Service Date, if different from initiated Date: [] Patient: David Lycnh a 63 y/o M admitted on 09/02/18 for Shortness of Breath /GI Bleed. Chief Complaint: [] Interval history: Mr. 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 Mayo oncologist. The patient presents to the ER from the urgent care center for shortness of breath and dizziness that has been bothering him for the last 2 -3 weeks. This has been progressively getting worse. Over the last 3-4 days the patient notes that his effort tolerance is significantly declined, he gets dizzy when he tries to climb up stairs or sometimes when he changes position. The patient has had poor appetite early satiety and some bloating in his stomach. The patient notes that he feels pressure on the abdominal epigastric region constant not associated with activity. The patient denies any headache changes in vision difficulty in swallowing [has a history of myasthenia but no recent flareup], denies any chest pain palpitations. He does have some abdominal distention, epigastric distress intermittent, bloating, he admits to having some dark stools denies any blood in the stools denies black colored stools. Denies any urinary issues. Has chronic knee issues, no new joint swelling no new skin rashes. He denies any other acute complaints or concerns. In the emergency room the patient was noted to be afebrile, hemodynamically stable, saturating 100% on room air. Chest x-ray that was done in the urgent care setting showed that the patient had a mass in the lung. Labs drawn showed a hemoglobin of around 8.1, before this was 10.9 in dec this year. D-dimer elevated at 0.9, chemistry shows creatinine of 1.3, BUN 20. Rest of the left lites stable. CT angios shows mass in the lung, mass in the liver. Given the hemoglobin was 8.1 FOB was checked which was noted to be positive and GI was consulted given the patient had some dizziness patient was admitted to the hospital for anemia as well as positive occult blood testing. IV PPI initiated at the request of GI physician. 09/03 Patient seen examined, received 2 units prbc, his hb this AM was 8.7, up from 8.1. Pt still has nausesa, some abdominal d istention. no obvious blood in stool Pt EGD this AM was negative as expected. Plan for CT Abdomen, and possible colonoscopy Will also consider biopsy of the mass in lung or liver once pt is more stable Repeat CBC, transfuse 2 more unit 09/04 Slept much better last night feeling better. Did have some nausea with a GoLYTELY prep. Otherwise doing better. 09/05 Sleep but more difficult the last night because of interruptions but otherwise doing okay. Last BM this morning, Dark still. No other new complaint 09/06 No bloody stools last night no BM since yesterday evening, feeling great and desiring to go home Review of Systems: denies headache/fever/chills/vomiting/chest or abdominal pain/cough/dyspnea. Otherwise see above. - Constitutional Vitals: Vital Signs Temp Pulse Resp BP Pulse Ox 98.3 F 63 18 141/64 94 09/06/18 06:44 09/06/18 04:00 09/06/18 06:44 09/06/18 06:44 09/06/18 06:44 Period Temp Pulse Resp BP Sys/Bailey Pulse Ox Last 24 Hr 96.9 F-98.6 F 50-83 -18 120-162/59-79 94-100 Intake and Output 09/05/18 09/06/18 09/06/18 21:59 05:59 13:59 Intake Total 1258 / 1258 540 / 540 Output Total 400 / 400 Balance 1258 / 1258 140 / 140 Weight 120.882 kg Intake & Output: Intake & Output 09/05/18 09/06/18 09/06/18 21:59 05:59 13:59 Intake Total 1258 / 1258 540 / 540 Output Total 400 / 400 Balance 1258 / 1258 140 / 140 Weight 120.882 kg Intake: IV 898 / 898 Dextrose 5% in Water 500 ml @ 898 / 898 125 mls/hr IV .Q4H [facility] Rx#: [id number] Oral 360 / 360 540 / 540 Output: Void Amount 400 / 400 Other: Meal Lunch Percent of Meal Consumed 100% Feeding Ability Independent # Voids 1 # Bowel Movements 1 1 Medical - PN: Obj Da - Labs CBC & Chem 7: 09/06/18 04:43 09/06/18 04:43 Labs: Abnormal Lab Results 09/06/18 09/06/18 09/05/18 04:43 04:43 04:20 RBC 3.42 L Hgb 9.6 L Hct 29.7 L RDW 14.6 H Gran % 84.5 H Lymph % (Auto) 7.6 L Gran # Lymph # (Auto) 0.6 L Sodium 146 H Anion Gap 17.0 H BUN 24 H 25 H Glucose 107 H Uric Acid 9.9 H 9.9 H Calcium 8.5 L Alkaline Phosphatase 201 H 213 H Lactate Dehydrogenase 615 H 648 H Total Protein 5.7 L Albumin 2.9 L 2.9 L 09/05/18 09/04/18 09/04/18 04:20 04:08 04:08 RBC 3.45 L 3.55 L Hgb 9.9 L 10.0 L Hct 29.7 L 30.6 L RDW Gran % 84.6 H 89.2 H Lymph % (Auto) 8.4 L 5.8 L Gran # 8.1 H Lymph # (Auto) 0.7 L 0.5 L Sodium Anion Gap BUN Glucose 128 H Uric Acid 8.4 H Calcium 8.5 L Alkaline Phosphatase 222 H Lactate Dehydrogenase 728 H Total Protein Albumin 2.9 L 09/03/18 10:39 RBC 3.24 L Hgb 9.2 L Hct 27.5 L RDW Gran % 88.3 H Lymph % (Auto) 4.4 L Gran # Lymph # (Auto) 0.4 L Sodium Anion Gap BUN Glucose Uric Acid Calcium Alkaline Phosphatase Lactate Dehydrogenase Total Protein Albumin Meds: Medications Acetaminophen (Tylenol) 650 mg PO Q6HP PRN PRN Reason: PAIN/FEVER > 101 Hydrocodone Bitart/Acetaminophen ([place] 5/325mg) 1 tab PO Q4HP PRN PRN Reason: pain not responding to tylenol Albuterol/Ipratropium (Duoneb) 3 ml NEB Q4HP PRN PRN Reason: Shortness Of Breath Or Wheezing Cyanocobalamin (Vitamin B-12) 1,000 mcg PO DAILY [facility] Last Admin: 09/05/18 08:49 Dose: 1,000 mcg Dextrose (Dextrose 50%) 0 ml IV UD PRN PRN Reason: Hypoglycemia Diagnostic Test (Pha) (Accu-Chek) 1 each FS Q6 [facility] Last Admin: 09/06/18 06:24 Dose: 1 each Hydrocortisone Sodium Succinate (Solu-Cortef) 25 mg IV Q12 [facility] Last Admin: 09/05/18 21:10 Dose: 25 mg Hydromorphone HCl (Dilaudid) 0.5 - 1 mg IV Q2HP PRN PRN Reason: PAIN LEVEL > 6 Insulin Human Lispro (Humalog) 0 unit SQ Q6 [facility]; Protocol Last Admin: 09/06/18 06:24 Dose: Not Given Naloxone HCl (Narcan) 0.1 mg IV Q2MIN PRN PRN Reason: Opiate Reversal Ondansetron HCl (Zofran) 4 mg IV Q4HP PRN PRN Reason: Nausea And Vomiting Prednisone (Prednisone) 17.5 mg PO Q48@0800 [facility] Promethazine HCl (Phenergan) 12.5 mg IV Q4HP PRN PRN Reason: Nausea And Vomiting Pyridostigmine Rienzi (Mestinon) 180 mg PO HS [facility] Last Admin: 09/05/18 21:09 Dose: 180 mg Pyridostigmine Rienzi (Mestinon) 60 mg PO Q6H [facility] Last Admin: 09/06/18 06:25 Dose: Not Given Sodium Chloride (Saline Flush) 10 ml IV Q8 [facility] Last Admin: 09/06/18 06:25 Dose: 10 ml Medical - PN: A/P - Time Spent With Patient Total time spent is greater than 50% in coordination of care (as documented) at patient's floor/unit and/or counseling patient: - Narrative A/P Narrative: A: *GI bleed: suspect small bowel AVM -EGD and Colonoscopy unremarkable *Anemia, acute blood loss -s/p 2prbc 09/02 & -9.6<9.9<10.0, did get some IVF yesterday *Lung/Liver mass (h/o colon cancer and h/o sarcoma on upper extremity): followed with [facility] in past -CT abd/pelv with 11cm right hepatic lobe mas, 5cm pleural based nodule RLL, 3 soft tissue nodules perinephric space left -lung biopsy (09/05) done *Obesity: *HTN: on ARB/HCTZ at home *Myasthenia Gravis: *Diabetes mellitus *B12 Deficiency *Hypomag: improved P: -monitor H&H -GI following, recommends pill cam study outpt unless bleeding restarts -lung biopsy pending -resumed pyridostigmine -IV hydrocortisone for now, he has been on 17.5mg prednisone q48 hrs for his myasthenia, last dose day before yesterday. Given acute stress conditions, will use IV cortisone, switch back to oral prednisone once pt is back to baseline -SSI for glucose control, hold home metformin/pioglitazone for now -restart home ARB at lower dose -B12 supp -f/u with oncology outpt -ppx: SCD/GI ppi
[2018-09-06] MEDS: CYANOCOBALAMIN (VITAMIN B-12) 500 MCG TABLET PO SCH (08:25)
[2018-09-06] MEDS ORDERED: HYDROCORTISONE SOD SUCC 100 MG VIAL IV SCH (09:00)
[2018-09-06] MEDS ORDERED: LOSARTAN 50 MG TABLET PO SCH (09:00)
[2018-09-07] MEDS ORDERED: predniSONE 5 MG TABLET PO SCH (08:00)
== END 2018-09-06 10:20 | disposition home or self-care (01) | DRG 378 ==
LOC: ED 17:54 → ICU 21:18
PROVIDERS: ADMIT Internal Medicine; ATTEND Internal Medicine
CPT/HCPCS: 80047; 85014; 99223; 99231; J1170; J1720; J1817; J2250; J2405; J2550; J3010; J3420; J3475; J7030; J7050; J7070; Q9967